=== PATIENT | male | born 1995 | race Caucasian/White ===

== ENCOUNTER 2022-03-02 11:47 | Day surgery (SDC) | payer OTHER, SELFPAY ==
[2022-03-02] VITALS (8 sets, daily range): BP systolic 112–138; BP diastolic 50–76; PULSE 66–84; RESP 12–20; TEMP 36.3–36.8; O2SAT 100
--- NOTE | ~2022-03-02 | XR_ITS ---
EXAMINATION: XR abdomen/kub 1V DATE: 03/02/2022 15:02 INDICATION: 3 mm distal left ureteral stone TECHNIQUE: A supine view of the abdomen on 2 radiographs was obtained. COMPARISON: CT dated 03/02/2022 FINDINGS: Excreted contrast from the earlier CT is seen within the bilateral renal collecting systems, ureters and bladder. There is mild left hydroureteronephrosis. There is extravasation of a small amount of co ntrast into the renal parenchyma surrounding one of the calyces at the lower pole with additional sma ll amount of extravasated perinephric contrast situated between the medial margin of the left kidney and medial margin of the left psoas muscle. There are a couple calcifications in the region of the le ft ureterovesicular junction, more likely representing the obstructing 3 mm stone in the second likel y representing one of several phleboliths in the pelvis. The additional stones in the left kidney are difficult to distinguish from the contrast within the calyces of the left kidney. Normal bowel gas p attern. IMPRESSION: 1. Mild left hydroureteronephrosis secondary to previous noted 3 mm stone at the left ureterovesicula r junction which appears to be visible at this location on the current study. 2. Small amount of left perinephric extravasated contrast consistent with urine leak secondary to for niceal rupture at a lower pole calyx. Reviewed, dictated and finalized at location B. IMPRESSION: 1. Mild left hydroureteronephrosis secondary to previous noted 3 mm stone at th e left ureterovesicular junction which appears to be visible at this location o n the current study. 2. Small amount of left perinephric extravasated contrast consistent with urine leak secondary to forniceal rupture at a lower pole calyx.
--- NOTE | ~2022-03-02 | XR_ITS ---
XR fluoroscopy no charge DATE: 03/02/2022 17:53 INDICATION: Left stone extraction TECHNIQUE: 2 spot C-arm images of the abdomen and pelvis 19 seconds fluoroscopy time [id number] [id number] COMPARISON: CT abdomen pelvis FINDINGS: There is columnar filling dilatation of the left ureter to the distal left ureteral area, w ith mild left hydronephrosis, blunting of the left renal calyces. There is faint contrast material within the right renal collecting systems. IMPRESSION: Distal left ureteral obstruction Reviewed, dictated and finalized at Location A. Reviewed, dictated and finalized at location A.
--- NOTE | ~2022-03-02 | CT_ITS ---
EXAMINATION: CT abdomen pelvis w con EXAM DATE: 03/02/2022 13:22 INDICATION: flank pain, Hx of stones . TECHNIQUE: Spiral CT of the abdomen and pelvis was performed following intravenous injection of 100 m L Omnipaque 350. Axial, coronal and sagittal images of the abdomen and pelvis were reviewed. The do se-length product (DLP) for this examination was 215.25 mGy-cm. The exposure was tailored according to patient size (auto mA exposure control), and iterative reconstruction (ASIR) was used as additiona l dose reduction technique. There is no prior study for comparison. FINDINGS: There is a left distal ureteral 3 mm stone, 1 cm from the ureterovesicular junction indicat ed on axial image 152. Mild left-sided obstructive nephropathy. There are multiple other left renal s tones up to about 6 mm in size. No right renal stones suspected. The liver, spleen, adrenal glands a nd pancreas are unremarkable. Gallbladder is unremarkable. No biliary obstruction. The prostate is unremarkable. The bladder is unremarkable. There is no retroperitoneal or pelvic lymphadenopathy. There are no findings to suggest appendicitis. The stomach and small bowel are unremarkable. There is mild colonic wall thickening at the hepatic flexure, 4 approximately 10 cm segment. Scattered colo adolfo diverticulitis including along the segment both without adjacent fat stranding. No pneumatosis or perforation. The heart is normal in size. There are no pericardial or pleural effusions. The lung bases are unremarkable. The bones are unremarkable. IMPRESSION: 1. Distal left ureteral 3 mm stone, mild obstructive nephropathy. Multiple left calyceal stones. 2. Colonic hepatic flexure mild wall thickening for about 10 cm segment with scattered diverticula. This is of uncertain clinical significance given that it may be asymptomatic, check for right upper q uadrant tenderness. Some scattered diverticula but no evidence of acute diverticulitis. Possibly wolff sient phasic, or colitis? Reviewed, dictated and finalized at location A. IMPRESSION: 1. Distal left ureteral 3 mm stone, mild obstructive nephropathy. Multiple le ft calyceal stones. 2. Colonic hepatic flexure mild wall thickening for about 10 cm segment with s cattered diverticula. This is of uncertain clinical significance given that it may be asymptomatic, check for right upper quadrant tenderness. Some scattered diverticula but no evidence of acute diverticulitis. Possibly transient phasic, or colitis?
--- NOTE | 2022-03-02 12:20 | ED.BACK ---
HPI - Back Pain/Injury General Chief Complaint: Back Pain/Injury <Victorina Castro PA-C - Last Filed: 03/02/22 17:58> Stated Complaint: lower back pain <JOSE Ramon Last Filed: 03/02/22 17:58> Source: patient <JOSE Ramon Last Filed: 03/02/22 17:58> Mode of arrival: EMS <JOSE Ramon Last Filed: 03/02/22 17:58> Limitations: no limitations <JOSE Ramon Last Filed: 03/02/22 17:58> History of Present Illness HPI Narrative: Patient is a 26 y/o male who presents to the ED via EMS with report of L flank pain. Patient reports he was sitting in recliner at home approximately 45 minutes ago when he suddenly developed severe pain in his left flank. He did not take anything for the pain at home. EMS was called. EMS gave patient IV Toradol in route which improved his pain slightly. He does report his pain is returning again. Patient has a history of kidney stone several years ago which he passed on his own. He does note he required inpatient admission at that time for pain control. He is unsure if his current pain feels similar or not. He denies any radiation of the pain. No alleviating factors. No abdominal pain. Denies any recent urinary symptoms, dysuria, hematuria, urinary frequency, nausea, vomiting, fever, chills. <Victorina Castro PA-C - Last Filed: 03/02/22 17:58> Related Data Allergies/Adverse Reactions: Allergies Allergy/AdvReac Type Severity Reaction Status Date / Time No Known Allergies Allergy Verified 03/02/22 14:31 <Victorina Castro PA-C - Last Filed: 03/02/22 17:58> Review of Systems Review of Systems: CONSTITUTIONAL: Denies fever, chills, or sweats. CARDIOVASCULAR: Denies chest pain. RESPIRATORY: Denies dyspnea. GASTROINTESTINAL: Denies abdominal pain, nausea, vomiting, or diarrhea. GENITOURINARY: Denies dysuria, urinary frequency, or hematuria. MUSCULOSKELETAL: Reports L flank pain. Denies joint pain, or myalgia. <Victorina Castro PA-C - Last Filed: 03/02/22 17:58> All systems reviewed & are unremarkable except as noted in HPI and below <Victorina Castro PA-C - Last Filed: 03/02/22 17:58> [facility] Past Medical History Medical History: Medical History Anxiety Nephrolithiasis <Victorina Castro PA-C - Last Filed: 03/02/22 17:58> Surgical History Surgical History: Surgical History No pertinent past surgical history <Victorina Castro PA-C - Last Filed: 03/02/22 17:58> Social History Social History: Social History Smoking status: Never smoker <Victorina Castro PA-C - Last Filed: 03/02/22 17:58> Exam Narrative: GENERAL: Well appearing, thin, non-toxic, in mild acute distress. HEAD: Normocephalic, atraumatic. NECK: Supple. No adenopathy, no masses. RESPIRATORY: Airway patent, respirations nonlabored. Clear to auscultation bilaterally, no rales, rhonchi, wheezing. CARDIOVASCULAR: Regular rate and rhythm without murmurs, rubs, or gallops. Peripheral pulses 2+ and equal bilaterally. ABDOMINAL: Soft, nontender, nondistended. Normoactive BS. L CVA tenderness to percussion. MUSCULOSKELETAL: Moves all extremities. Strength/ROM intact without gross deformities. Tenderness palpation of left mid to lower back. LLE tremulous. No edema. SKIN: Warm, dry, normal color. No rashes. NEURO: A&O X3. Speech clear. Cranial nerves II-XII grossly intact. Steady gait. No ataxic movements. PSYCHIATRIC: Anxious appearing. Appropriate affect. Normal interaction. <Victorina Castro PA-C - Last Filed: 03/02/22 17:58> Course EC TEACHER/PA Physician Supervision For this encounter, I have reviewed the PA documentation, treatment plan and medical decision making: And I have had [id number] time with the patient. Discussed with patient our discussion was with urology discussed need for OR to
[2022-03-02] MEDS: SODIUM CHLORIDE 0.9% IV 1,000 ML 999 ML IV CONT (12:44)
[2022-03-02 12:52] LABS: Basophils Absolute Auto 0.1 K/mm3 (0.0-0.1); Basophils Percent Auto 0.5 % (0.2-1.2); Eosinophils Percent Auto 0.2 % (0-4.4); Hematocrit 41.8 % (42.0-52.0); Immature Granulocyte Absolute 0.03 K/mm3 (0.00-0.031); Immature Granulocyte Percent A 0.2 % (0-0.5); Lymphocytes Absolute Auto 1.15 K/mm3 (0.9-3.2); Lymphocytes Percent Auto 8.3 % (18.3-44.2); Mean Corpuscular HGB Conc 33.5 g/dl (32-36); Mean Corpuscular Hemoglobin 28.5 pg (26-34); Mean Platelet Volume 10.3 fl (7.4-10.4); Monocytes Absolute Auto 0.6 K/mm3 (0.1-0.6); Monocytes Percent Auto 4.2 % (2.6-8.5); Neutrophils Percent Auto 86.6 % (45.5-73.1); Platelet Count Result 260 k/mm3 (150-375); Red Blood Count 4.92 M/mm3 (4.6-6.20); Red Cell Distribution Width 13.1 % (11.5-14.5); White Blood Count 13.8 K/mm3 (4.5-10.0)
[2022-03-02 13:01] LABS: Alanine Aminotransferase 15 U/L (4-50); Albumin Level 4.4 g/dL (3.5-5.1); Alkaline Phosphatase 54 U/L (38-126); Anion Gap 6 mmol/L (8-16); Aspartate Amino Transferase 27 U/L (17-59); Bilirubin,Total 1.1 mg/dL (0.2-1.3); Blood Urea Nitrogen 14 mg/dL (9-20); Calcium 8.8 mg/dL (8.4-10.2); Carbon Dioxide 26 mmol/L (22-30); Chloride 105 mmol/L (98-107); Estimated CRCL calculation 108 ml/min; Estimated Glomerular Filt Rate > 60; Glucose 115 mg/dL (65-110); Potassium 3.8 mmol/L (3.4-5.0); Sodium 137 mmol/L (137-145)
[2022-03-02] MEDS: MORPHINE SULFATE (*CRX) 4 MG/ML INJ 2 MG IV PUSH ×2 (14:32→16:15)
[2022-03-02] MEDS: ONDANSETRON INJ 4 MG/2 ML VIAL IV PUSH (14:32)
[2022-03-02 14:54] LABS: Add Urine Microscopic? YES; Appearance Urine Cloudy (Clear); Bilirubin Urine Negative (Negative); Blood Urine 1+ (Negative); Color Urine Yellow (Yellow); Glucose Urine UA Negative (Negative); Ketones Urine Negative (Negative); Leukocyte Esterase Ur Negative LEU/UL (Negative); Mucus Urine Rare /lpf; Nitrate Urine Negative (Negative); Protein Urine Negative (Negative); RBC Urine 21-50 /hpf (0-2); Squamous Epithelial Cell Urine Rare /hpf (Few); Urobilinogen Urine Negative mg/dL (<2.0); WBC Urine 0-3 /hpf
[2022-03-02 15:12] LABS: Specific Grav Ur 1.035 (1.001-1.035)
--- NOTE | 2022-03-02 16:04 | WPDURCON ---
Assessment and Plan Assessment and plan (1) Ureteral calculus, left: Code(s): N20.1 - Calculus of ureter Status: Acute Assessment and Plan: Obtain consent: Cystoscopy, left ureteroscopy with stone extraction, possible left stent placement, left retrograde pyelogram. Plan to go to the OR with Dr. Mejia. Obtain a urine culture. Urology Consult Note HPI Date Seen: 03/02/22 Primary Care Provider: PHYSICIAN NOT ON STAFF Consult Narrative Narrative: Abdulaziz Schulz is a 26 year old male who presents via EMS to the ER for acute onset of left flank pain, associated nausea and vomiting. He denies dysuria, hematuria, frequency, urgency or straining of urination. He has a WBC of 13,000, creatinine is stable. He is afebrile. CT scan shows a 3mm left UVJ stone which is also visible on KUB. He has a history of kidney stones when he was in 8th grade and was admitted for pain control overnight. He passed the stone spontaneously at that time. UA is not suggestive of a UTI, but a culture will need to be done. He has been given Tylenol, Torodol and Morphine but pain is not controlled. Review of Systems Cardiovascular: Cardiovascular: Denies chest pain Respiratory: Respiratory: Reports no additional respiratory complaints Gastrointestinal: Gastrointestinal: Reports abdominal pain, Reports nausea and Denies vomiting Genitourinary: Genitourinary: Denies hematuria, Denies dysuria, Reports flank pain, Denies urinary frequency, Denies urinary incontinence and Denies urinary urgency PMFSH Past Medical History Medical History Anxiety Surgical History Surgical History No pertinent past surgical history Social History Social History Smoking status: Never smoker Meds Home Medications and Allergies Home Medications Medication Instructions Recorded Confirmed Type hydrocodone-acetaminophen 1 tablet PO Q6H PRN #20 tablet 03/02/22 Rx sulfamethoxazole-trimethoprim 1 tablet PO Q12H #14 tablet 03/02/22 Rx [Bactrim DS] Allergies Allergy/AdvReac Type Severity Reaction Status Date / Time No Known Allergies Allergy Verified 03/02/22 14:31 Vital Signs Vital Signs - 24 hr 03/02/22 11:50 Temperature 98 F Pulse Rate 82 Respiratory Rate 18 Blood Pressure 138/76 Pulse Oximetry 100 Exam Resp: Effort & Inspection: normal respiratory effort Cardio: Rate: regular rate GI: GI Palp: Yes Soft to palpation and No Tenderness to palpation present (GI) : General: Yes CVA tenderness on the left Extrem: General: no edema Results Labs CBC & Chem 7: 03/02/22 12:44 03/02/22 12:44 Labs: Short CBC 03/02/22 Range/Units 12:44 WBC 13.8 H (4.5-10.0) K/mm3 Hgb 14.0 (14.0-18.0) g/dL Hct 41.8 L (42.0-52.0) % Plt Count 260 (150-375) k/mm3 BMP 03/02/22 12:44 Sodium 137 Potassium 3.8 Chloride 105 Carbon Dioxide 26 BUN 14 Creatinine 0.80 Glucose 115 H Calcium 8.8 Liver Function 03/02/22 Range/Units 12:44 Total Bilirubin 1.1 (0.2-1.3) mg/dL AST 27 (17-59) U/L ALT 15 (4-50) U/L Alkaline Phosphatase 54 (38-126) U/L Albumin 4.4 (3.5-5.1) g/dL Urine 03/02/22 Range/Units 14:38 Urine Color Yellow (Yellow) Urine Appearance Cloudy H (Clear) Urine pH 9.0 (5.0-9.0) Ur Specific [place] 1.035 (1.001-1.035) Urine Protein Negative (Negative) mg/dL Urine Glucose (UA) Negative (Negative) mg/dL
--- NOTE | 2022-03-02 16:19 | WPDANESEPP ---
Anes - Eval Pre Procedure Procedure: Operation Date: 03/02/22 16:30 Proposed Procedures p Cystoscopy,Left Ureteroscopy,Left Retrograde Pyelogram,Left Stone Extraction,Possible Holmium Laser,Possible Stent Placement - Manjit Mejia MD Date/Time: 03/02/22 16:19 Pre Op Diagnosis: lower back pain Patient Data Age: 26 Gender: M Height: 1.88 m Weight: 63 kg Last Vital Signs Temp 36.6 C 03/02/22 11:50 Pulse 82 03/02/22 11:50 Resp 18 03/02/22 11:50 BP 138/76 03/02/22 11:50 Pulse Ox 100 03/02/22 11:50 Allergies Allergy/AdvReac Type Severity Reaction Status Date / Time No Known Allergies Allergy Verified 03/02/22 14:31 Home Medications Medication Instructions Recorded Confirmed Type hydrocodone-acetaminophen 1 tablet PO Q6H PRN #20 tablet 03/02/22 Rx sulfamethoxazole-trimethoprim 1 tablet PO Q12H #14 tablet 03/02/22 Rx [Bactrim DS] Laboratory Tests 03/02/22 03/02/22 03/02/22 12:44 12:44 14:38 WBC 13.8 K/mm3 H K/mm3 (4.5-10.0) RBC 4.92 M/mm3 M/mm3 (4.6-6.20) Hgb 14.0 g/dL g/dL (14.0-18.0) Hct 41.8 % L % (42.0-52.0) MCV 85.0 fl fl (80-100) MCH 28.5 pg pg (26-34) MCHC 33.5 g/dl g/dl (32-36) RDW 13.1 % % (11.5-14.5) Plt Count 260 k/mm3 k/mm3 (150-375) MPV 10.3 fl fl (7.4-10.4) Immature Gran % (Auto) 0.2 % % (0-0.5) Neut % (Auto) 86.6 % H % (45.5-73.1) Lymph % (Auto) 8.3 % L % (18.3-44.2) [place] % (Auto) 4.2 % % (2.6-8.5) Eos % (Auto) 0.2 % % (0-4.4) Baso % (Auto) 0.5 % % (0.2-1.2) Lymph # (Auto) 1.15 K/mm3 K/mm3 (0.9-3.2) [place] # (Auto) 0.6 K/mm3 K/mm3 (0.1-0.6) Eos # (Auto) 0.0 K/mm3 K/mm3 (0-0.3) Baso # (Auto) 0.1 K/mm3 K/mm3 (0.0-0.1) Abs Immat Gran (auto) 0.03 K/mm3 K/mm3 (0.00-0.031) Absolute Neuts (auto) 12.0 K/mm3 H K/mm3 (1.3-6.7) Absolute Nucleated RBC 0.0 K/mm3 K/mm3 (0.0-0.012) Nucleated RBC % 0.0 % % (0.0-0.2) Sodium 137 mmol/L mmol/L (137-145) Potassium 3.8 mmol/L mmol/L (3.4-5.0) Chloride 105 mmol/L mmol/L (98-107) Carbon Dioxide 26 mmol/L mmol/L (22-30) Anion Gap 6 mmol/L L mmol/L (8-16) BUN 14 mg/dL mg/dL (9-20) Creatinine 0.80 mg/dL mg/dL (0.7-1.3) Estim Creat Clear Calc 108 ml/min ml/min Estimated GFR > 60 (59 - ) Glucose 115 mg/dL H mg/dL (65-110) Calcium 8.8 mg/dL mg/dL (8.4-10.2) Total Bilirubin 1.1 mg/dL mg/dL (0.2-1.3) AST 27 U/L U/L (17-59) ALT 15 U/L U/L (4-50) Alkaline Phosphatase 54 U/L U/L (38-126) Total Protein 7.0 g/dL g/dL (6.3-8.2) Albumin 4.4 g/dL g/dL (3.5-5.1) Urine Color Yellow (Yellow) Urine Appearance Cloudy H (Clear) Urine pH 9.0 (5.0-9.0) Ur Specific [place] 1.035 (1.001-1.035) Urine Protein Negative mg/dL mg/dL (Negative) Urine Glucose (UA) Negative mg/dL mg/dL (Negative) Urine Ketones Negative mg/dL mg/dL (Negative) Ur Blood (Man) 1+ H (Negative) Urine Nitrate Negative (Negative) Urine Bilirubin Negative (Negative) Urine Urobilinogen Negative mg/dL mg/dL (<2.0) Leukocyte Esterase Rfl Negative BRIT/UL BRIT/UL (Negative) Urine RBC 21-50 /hpf H /hpf (0-2) Urine WBC 0-3 /hpf /hpf Ur Squamous Epith Cells Rare /hpf /hpf (Few) Urine Mucus Rare /lpf /lpf Patient hx anesthesia problems: none Family hx anesthesia problems: none Results Review: All pre-operative results and documents have been reviewed as part of the pre-operative evaluation. PMFSH Past Medical History
--- NOTE | 2022-03-02 16:29 | WPDHPUPDATE1 ---
History and Physical Update Update Date/Time: 03/02/22 16:29 History and Physical has been reviewed, including an updated exam of the patient. There are NO changes in the patient's condition. Risks, benefits, and alternatives have been discussed and questions answered. Patient agrees to proceed with procedure. Proceed with cysto, left retrograde, left ureteroscopy,stone extraction possible laser and stent
--- NOTE | 2022-03-02 16:35 | PC.NURSE ---
called lab and talked to Ara at 1635 to add on a UC
--- NOTE | 2022-03-02 17:03 | WPDANESEFPP ---
Anes - Eval Final PreProcedure Day of Procedure 03/02/22 17:03 Patient weight: normal Heart: regular rate and rhythm Lungs: clear to auscultation and normal air movement Airway: Mallampati scale class II Neurological: alert and oriented Last oral intake: >/= 8 hours ASA classification: II Emergent: yes Anesthetic plan: proceed Anesthesia type and monitoring: general ETT Results Review: All pre-operative results and documents have been reviewed as part of the pre-operative evaluation. Informed Consent: The patient's anesthetic plan and its attendant risks and benefits were discussed with the patient/family/POA. Questions were solicited and answers provided to the satisfaction of the patient/family/POA.
[2022-03-02] MEDS: ceFAZolin SODIUM 1 GM VIAL 2 GM IV PUSH (17:32)
[2022-03-02] MEDS: LIDOCAINE HCL 2% GEL UROJET 10 ML PKG MUCOUS MEM (17:42)
--- NOTE | 2022-03-02 17:45 | P.OP_ITS ---
Procedure Note - Detailed Date of Procedure 03/02/22 Pre-op Diagnosis Obstructing left distal ureteral calculus with hydronephrosis and renal colic Post-op Diagnosis Same Procedure Performed Cystoscopy, left ureteroscopy with stone extraction Surgeon Manjit Mejia MD Anesthesia General Indications 26-year-old male with an obstructing with 3 mm left ureteral calculus with significant need for pain control. Patient taken to the operative suite for definitive treat Description of Procedure Patient is taken the operative suite correctly identified. Once anesthesia was obtained was placed in dorsal lithotomy position and prepped draped usual sterile fashion. Nineteen German scope was inserted in the bladder. There were no tumors noted. Left ureteral orifice was cannulated with a guidewire. We gently dilated using a 8/10 dilator. Rigid ureteral scope was then inserted. The left ureteral calculus was visualized. Using escape basket removed in its entirety. Giving the very lower minimal manipulation we decided to not place a stent. 2% viscous lidocaine was inserted into the urethra patient is taken recovery stable condition. A follow-up in 2-3 weeks time at which point will obtain a renal ultrasound and KUB as he has multiple stones in his left kidney. He will need a nephrology workup at some point time with for a metabolic workup Drains No Packing No Pathology Yes Complications No immediate complications Condition Stable Disposition PACU
[2022-03-02] MEDS: LACTATED RINGERS 1,000 ML 30 ML IV CONT (17:50)
== END 2022-03-02 19:09 | disposition home or self-care (01) ==
LOC: ANHED 16:37 → ANHSURGERY 17:02
PROVIDERS: Physician Assistant; Emergency Provider Emergency Medicine; Visit Provider Urology
PROC: (CPT 52352; principal; 2022-03-02 16:30)
DX: N13.2 Hydronephrosis with renal and ureteral calculous obstruction (principal)
CPT/HCPCS: 52352; 36415; 74018; 74177; 80053; 81001; 82365; 85025; 87086; 88300; 96361; 96365; 96375; 99285; A9270; C1769; J0131; J0330; J0690; J2250; J2270; J2405; J2704; J3010; J7030; J7120; Q9967

== ENCOUNTER 2022-03-03 20:53 | Emergency (ER) | payer OTHER, SELFPAY ==
--- NOTE | ~2022-03-03 | CT_ITS ---
EXAMINATION: CT abdomen pelvis wo con EXAM DATE: 03/03/2022 22:04 INDICATION: Left flank pain. TECHNIQUE: Spiral CT of the abdomen and pelvis was performed without contrast. Axial, coronal and sag ittal images were reviewed. The dose-length product (DLP) for this examination was 192.05 mGy-cm. T he exposure was tailored according to patient size (auto mA exposure control), and iterative reconstr uction (ASIR) was used as additional dose reduction technique. Comparison is made to prior examinatio n from 03/02/2022. FINDINGS: Previously seen distal left ureteral 3 mm stone is no longer identified, has likely passed. There is persistent mild left hydroureteronephrosis. Multiple volar left calyceal stones up to about 7 mm in size. The prostate is unremarkable. The bladder is unremarkable. The liver, spleen, adren al glands and pancreas are unremarkable. Gallbladder is unremarkable. No biliary obstruction. Ther e is no retroperitoneal or pelvic lymphadenopathy. Previously seen prominent colonic wall at the hepatic flexure has more normal appearance on this exam ination. There are no findings to suggest appendicitis. The stomach and small bowel are unremarkable . There is moderate amount of colonic stool. No free intraperitoneal gas. The heart is normal in size. There are no pericardial or pleural effusions. The lung bases are unremarkable. There are n o osteoblastic or osteolytic lesions identified. IMPRESSION: 1. Previously seen distal left ureteral 3 mm stone no longer identified, has likely passed. Persiste nt mild left hydroureteronephrosis. 2. Multiple left calyceal stones. 3. Moderate colonic stool. Reviewed, dictated and finalized at location A. IMPRESSION: 1. Previously seen distal left ureteral 3 mm stone no longer identified, has l ikely passed. Persistent mild left hydroureteronephrosis. 2. Multiple left calyceal stones. 3. Moderate colonic stool.
[2022-03-03 20:55] VITALS: BP 140/73; PULSE 67; RESP 16; TEMP 36.8; O2SAT 100
--- NOTE | 2022-03-03 21:32 | ED.BACK ---
HPI - Back Pain/Injury General Chief Complaint: Back Pain/Injury Stated Complaint: Left flank pain Time Seen by Provider: 03/03/22 21:02 Source: patient History of Present Illness HPI Narrative: 26-year-old male returns emerge department for evaluation of return of his left flank pain. Patient was diagnosed with a kidney stone yesterday and did have basket retrieval of the stone. Patient was discharged home with hydrocodone. Patient states over the course of last night has pain was minimal but 1 hour prior to arrival he had acute worsening of his left flank pain. Patient states he is making urine and does report some hematuria. Patient did not take any medication for pain control prior to arrival. Related Data Allergies Allergy/AdvReac Type Severity Reaction Status Date / Time No Known Allergies Allergy Verified 03/03/22 20:55 Review of Systems Review of Systems: CONSTITUTIONAL: Denies fever, chills, or sweats. EYES: Denies visual changes, redness, or discharge. ENT: Denies rhinorrhea, congestion, sore throat, or otalgia. CARDIOVASCULAR: Denies chest pain, palpitations, or edema. RESPIRATORY: Denies cough or dyspnea. GASTROINTESTINAL: Left flank pain GENITOURINARY: Hematuria SKIN: Denies rash or itching. MUSCULOSKELETAL: Denies back pain, joint pain, or myalgia. NEUROLOGIC: Denies headache, numbness, or weakness. [facility] Past Medical History Medical History Anxiety Nephrolithiasis Surgical History Surgical History No pertinent past surgical history Social History Social History Smoking status: Never smoker Exam Narrative: APPEARANCE: Well appearing, no pain, no distress, well-nourished. HEAD: normocephalic, atraumatic. RESPIRATORY: Airway patent, respirations nonlabored. Clear to auscultation bilaterally, no rales, rhonchi, wheezing. CARDIOVASCULAR: Regular rate and rhythm without murmurs rubs or gallops. ABDOMINAL: Soft, nontender, nondistended, normal bowel sounds. Some left CVA tenderness to palpation MUSCULOSKELETAL: Moves all extremities. Strength/ROM intact, No edema, No calf tenderness. NEURO: Alert. Cranial nerves II through XII intact. Grossly intact SKIN: Warm, dry. Normal Color Course Course Emergency Course: CT scan showed no acute abnormality. Patient's pain was improved with treatment. Vital Signs Vital signs: Vital Signs Temperature 98.2 F 03/03/22 20:55 Pulse Rate 67 03/03/22 20:55 Respiratory Rate 16 03/03/22 20:55 Blood Pressure 140/73 03/03/22 20:55 Pulse Oximetry 100 03/03/22 20:55 Temperature 98.2 F 03/03/22 20:55 Pulse Rate 57 L 03/04/22 01:26 Respiratory Rate 16 03/04/22 01:26 Blood Pressure 123/73 03/04/22 01:26 Pulse Oximetry 98 03/04/22 01:26 MDM - Back Pain/Injury Lab Data Attestation: I reviewed the patient's lab results. Labs: Lab Results 03/03/22 Range/Units 23:32 Urine Color Yellow (Yellow) Urine Appearance Cloudy H (Clear) Urine pH 5.0 (5.0-9.0) Ur Specific [place] 1.017 (1.001-1.035) Urine Protein 1+ H (Negative) mg/dL Urine Glucose (UA) Negative (Negative) mg/dL Urine Ketones Negative (Negative) mg/dL Ur Blood (Man) 3+ H (Negative) Urine Nitrate Negative (Negative) Urine Bilirubin Negative (Negative) Urine Urobilinogen Negative (<2.0) mg/dL Leukocyte Esterase Rfl Negative (Negative) BRIT/UL Urine RBC >75 H (0-2) /hpf Urine WBC 10-15 H /hpf Calcium Oxalate Crystal Present (None) /hpf Urine Mucus Few H /lpf Imaging Data Radiologist's impression: stat rad CT abdomen pelvis without contrast impression: Stable mild prominent extrarenal pelvis left kidney. No miguel hydronephrosis, hydroureter or interval change. No bladder stone. Incidental findings: Compared with CT abdomen pelvis and KUB on 03/02/2022.
[2022-03-03] MEDS: HYDROmorphone HCL INJ (*CRX) 1 MG/ML SYR IV PUSH (21:51)
[2022-03-03] MEDS: SODIUM CHLORIDE 0.9% IV 1,000 ML 999 ML IV CONT (22:45)
--- NOTE | 2022-03-03 22:51 | PC.NURSE ---
Patient unable to provide urine sample at this time. IV fluids initiated per physician's ordered. Patient care report given to MARTÍN Suarez. All questions answered at this time and care turned over to MARTÍN Suarez at this time.
--- NOTE | 2022-03-03 23:00 | PC.NURSE ---
Report from Leanna RESENDIZ
[2022-03-03 23:45] LABS: Add Urine Microscopic? YES; Appearance Urine Cloudy (Clear); Bilirubin Urine Negative (Negative); Blood Urine 3+ (Negative); Calcium Oxalate Crystals Urine Present /hpf; Color Urine Yellow (Yellow); Glucose Urine UA Negative (Negative); Ketones Urine Negative (Negative); Leukocyte Esterase Ur Negative LEU/UL (Negative); Mucus Urine Few /lpf; Nitrate Urine Negative (Negative); Protein Urine 1+ mg/dL (Negative); RBC Urine >75 /hpf (0-2); Specific Grav Ur 1.017 (1.001-1.035); Urobilinogen Urine Negative mg/dL (<2.0)
--- NOTE | 2022-03-04 00:52 | PC.NURSE ---
Pt asking about CT results. RN called Victorina from CT who states We are still working on it. PT updated.
[2022-03-04 01:18] VITALS: BP 123/73; PULSE 57; RESP 20; O2SAT 98
[2022-03-04 01:26] VITALS: BP 123/73; PULSE 57; RESP 16; O2SAT 98
[2022-03-04] MEDS: HYDROcodone/acetaminophen (*CRX) 5-325 MG TABLET 1 TAB PO (01:33)
== END 2022-03-04 01:37 | disposition home or self-care (01) ==
PROVIDERS: Emergency Provider Emergency Medicine; PCP Family Medicine
DX: R10.9 Unspecified abdominal pain (principal); Z87.442 Personal history of urinary calculi; N13.30 Unspecified hydronephrosis
CPT/HCPCS: 74176; 81001; 87086; 96361; 96374; 99284; A9270; J1170; J7030

== ENCOUNTER 2022-03-05 09:59 | Emergency (ER) | payer OTHER, SELFPAY ==
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
--- NOTE | 2022-03-05 10:45 | PC.NURSE ---
pt seen walking out of dept with his .
== END 2022-03-05 10:45 | disposition left against medical advice (07) ==
LOC: ANHED 10:55
DX: Z53.21 Procedure and treatment not carried out due to patient leaving prior to being seen by health care provider (principal)
CPT/HCPCS: 99199

== ENCOUNTER 2022-07-17 14:56 | Emergency (ER) | payer OTHER, SELFPAY ==
[2022-07-17] VITALS (30 sets, daily range): BP systolic 128–141; BP diastolic 69–98; PULSE 63–83; RESP 12–19; TEMP 36.5; O2SAT 100
--- NOTE | ~2022-07-17 | XR_ITS ---
EXAMINATION: XR chest 2V DATE: 07/17/2022 15:43 INDICATION: Chest pain TECHNIQUE: PA and lateral views of the chest are obtained. COMPARISON: 01/29/2008 FINDINGS: The lungs are free of acute opacities. No pleural effusion or pneumothorax. The cardiomedia stinal silhouette is normal. The visualized bones and soft tissues are unremarkable. IMPRESSION: 1. No acute cardiopulmonary abnormality. Reviewed, dictated and finalized at location B.
--- NOTE | 2022-07-17 15:12 | ECG_ITS ---
Measurements Intervals [place] Rate: 76 P: 60 CO: 131 QRS: 76 QRSD: 105 T: 47 QT: 388 QTc: 437 Interpretive Statements SINUS RHYTHM WITH SINUS ARRHYTHMIA NORMAL ECG NO PREVIOUS ECG AVAILABLE FOR COMPARISON Electronically Signed On 07-17-2022 18:29:14 CDT by Jeffery Flood M.D.
[2022-07-17 15:27] LABS: Basophils Absolute Auto 0.1 K/mm3 (0.0-0.1); Basophils Percent Auto 0.8 % (0.2-1.2); Eosinophils Absolute Auto 0.1 K/mm3 (0-0.3); Eosinophils Percent Auto 1.1 % (0-4.4); Hematocrit 42.5 % (42.0-52.0); Immature Granulocyte Absolute 0.03 K/mm3 (0.00-0.031); Immature Granulocyte Percent A 0.4 % (0-0.5); Lymphocytes Absolute Auto 1.86 K/mm3 (0.9-3.2); Lymphocytes Percent Auto 25.5 % (18.3-44.2); Mean Corpuscular HGB Conc 32.9 g/dl (32-36); Mean Corpuscular Hemoglobin 28.1 pg (26-34); Mean Corpuscular Volume 85.2 fl (80-100); Mean Platelet Volume 10.2 fl (7.4-10.4); Monocytes Absolute Auto 0.5 K/mm3 (0.1-0.6); Monocytes Percent Auto 6.3 % (2.6-8.5); Neutrophils Absolute Auto 4.8 K/mm3 (1.3-6.7); Neutrophils Percent Auto 65.9 % (45.5-73.1); Platelet Count Result 268 k/mm3 (150-375); Red Blood Count 4.99 M/mm3 (4.6-6.20); Red Cell Distribution Width 13.1 % (11.5-14.5); White Blood Count 7.3 K/mm3 (4.5-10.0)
[2022-07-17 15:41] LABS: Alanine Aminotransferase 14 U/L (6-50); Albumin Level 4.6 g/dL (3.5-5.1); Alkaline Phosphatase 45 U/L (38-126); Anion Gap 9 mmol/L (8-16); Aspartate Amino Transferase 22 U/L (17-59); Blood Urea Nitrogen 19 mg/dL (9-20); Calcium 9.3 mg/dL (8.4-10.2); Carbon Dioxide 30 mmol/L (22-30); Chloride 100 mmol/L (98-107); Estimated CRCL calculation 108 ml/min; Estimated Glomerular Filt Rate > 60; Glucose 83 mg/dL (65-110); Lipase 115 U/L (23-300); Potassium 3.6 mmol/L (3.4-5.0); Sodium 139 mmol/L (137-145)
[2022-07-17 15:47] LABS: INR 1.2; Prothrombin Time 14.8 Seconds (11.1-14.7)
[2022-07-17 15:53] LABS: Troponin I < 0.012 ng/mL (0.000-0.034)
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
[2022-07-17] MEDS: KETOROLAC 30 MG/ML VIAL (*BKC) IM (16:56)
[2022-07-17 17:06] LABS: D Dimer < 0.27 ug/mL (<0.48)
[2022-07-17 19:36] LABS: Troponin I < 0.012 ng/mL (0.000-0.034)
== END 2022-07-17 21:30 | disposition home or self-care (01) ==
PROVIDERS: Emergency Provider Emergency Medicine; PCP Family Medicine
DX: R07.9 Chest pain, unspecified (principal); Z87.442 Personal history of urinary calculi
CPT/HCPCS: 36415; 71046; 80053; 83690; 84484; 85025; 85380; 85610; 85730; 93005; 96372; 99284; J1885

== ENCOUNTER 2023-01-02 12:33 | Emergency (ER) | payer BC, SELFPAY ==
--- NOTE | ~2023-01-02 | XR_ITS ---
Left Knee Technique: AP, lateral, and sunrise views were obtained. Clinical History: Pain Findings: No fracture or dislocation is seen. Osseous alignment is anatomic. Joint spaces are preserv ed without degenerative or erosive change. Soft tissues are unremarkable. No joint effusion is seen. Impression: Unremarkable left knee radiographs. Reviewed, dictated and finalized at location . [facility] [employer] Impression: Unremarkable left knee radiographs.
--- NOTE | 2023-01-02 12:47 | ED.LOWEXIN ---
HPI - Extremity Injury (Lower) General Chief Complaint: Extremity Injury, Lower Stated Complaint: L KNEE INJURY Time Seen by Provider: 01/02/23 12:40 Source: patient and RN notes reviewed History of Present Illness HPI Narrative: Patient is a 27-year-old male who presents to urgent care with complaints of left knee pain. Patient states he was using a concrete [employer] and the recalls from the machinery hit his knee cap. Patient is not done anything for pain since the incident at 10:00 a.m. this morning. States that it hurts worse with squatting or ambulating. No other acute complaints. No acute distress noted. Patient aware of the plan of care. Some parts of this dictation were generated by voice recognition software and may contain typographical and/or grammatical inaccuracies. Related Data Home Medications Medication Instructions Recorded Confirmed diazepam 5 mg tablet 5 mg PO DAILY 01/02/23 01/02/23 Allergies Allergy/AdvReac Type Severity Reaction Status Date / Time No Known Allergies Allergy Verified 01/02/23 13:09 Review of Systems Review of Systems: CONSTITUTIONAL: Denies fever, chills, or sweats. EYES: Denies visual changes, redness, or discharge. ENT: Denies rhinorrhea, congestion, sore throat, or otalgia. CARDIOVASCULAR: Denies chest pain, palpitations, or edema. RESPIRATORY: Denies cough or dyspnea. GASTROINTESTINAL: Denies abdominal pain, nausea, vomiting, or diarrhea. GENITOURINARY: Denies dysuria or hematuria. SKIN: Denies rash or itching. MUSCULOSKELETAL: Reports of left knee pain NEUROLOGIC: Denies headache, numbness, or weakness. All other systems reviewed are negative, except as documented in HPI. [facility] Past Medical History Medical History (Updated 01/02/23 @ 13:14 by LARRY Holland) Kidney stones Surgical History Surgical History (Updated 07/17/22 @ 17:15 by Theodore Dockery MD) History of appendectomy Family History Family History (Updated 07/28/14 @ 15:33 by DOCTOR UNKNOWN) Other Diabetes mellitus Family history of cardiovascular disease Family history of elevated blood lipids Social History Social History Alcohol intake: current Comments At the time of my signature, I reviewed and agree with the nursing past medical, surgical, social, and family history. There is no relevant family history pertinent to the patient complaint. Exam Narrative: GENERAL: This is a well-nourished, well-developed patient, in no apparent distress. HEAD: normocephalic, atraumatic. EYES: PERRL. Sclera clear/white. Vision is grossly intact. EARS: External ears normal NOSE: External nose normal with no obvious nasal discharge, nares without redness, no rhinorrhea. THROAT: Mucous membranes moist NECK: Neck supple SKIN: warm, intact with no suspicious lesions or rash, good texture and turgor. NEURO: awake, alert, and oriented to person, place and time. There were no obvious focal neurologic abnormalities. EXTREMITIES: No obvious effusion, erythema, ecchymosis or edema noted to the left knee/lower extremity. No pinpoint tenderness over the left patellar region. Range of motion left lower extremity within normal limits. Course Course Level of Care: Express Care Visit Vital Signs Vital signs: Vital Signs Temperature 98.4 F 01/02/23 12:49 Pulse Rate 95 01/02/23 12:49 Respiratory Rate 16 01/02/23 12:49 Blood Pressure 143/74 H 01/02/23 12:49 Pulse Oximetry 100 01/02/23 12:49 Temperature 98.4 F 01/02/23 12:49 Pulse Rate 95 01/02/23 12:49 Respiratory Rate 16 01/02/23 12:49 Blood Pressure 143/74 H 01/02/23 12:49 Pulse Oximetry 100 01/02/23 12:49 Reviewed- Patient is informed that they may have pre-hypertension or hypertension based on a blood pressure reading in the department. I recommend the patient call the primary care provider listed on their discharge instructions or a physician of their choice this week to arrange follow-up for f
[2023-01-02 12:49] VITALS: BP 143/74; PULSE 95; RESP 16; TEMP 36.9; O2SAT 100
== END 2023-01-02 13:20 | disposition home or self-care (01) ==
PROVIDERS: Emergency Provider Nurse Practitioner Family; PCP Family Medicine
DX: S80.02XA Contusion of left knee, initial encounter (principal); W31.89XA Contact with other specified machinery, initial encounter
CPT/HCPCS: 73562; 99213; G0463

== ENCOUNTER 2023-03-11 17:18 | Emergency (ER) | payer BC, SELFPAY ==
--- NOTE | ~2023-03-11 | CT_ITS ---
EXAMINATION: CT abdomen pelvis wo con DATE: 03/11/2023 17:49 INDICATION: Ureteral lithiasis TECHNIQUE: Computed tomography (CT) of the abdomen and pelvis was performed without intravenous contr ast. The dose-length product was 218.90 mGy-cm. Automated exposure control and iterative reconstructi on technique were employed. COMPARISON: CT dated 03/03/2022. FINDINGS: Lung bases unremarkable. Heart size normal. No significant pleural or pericardial effusion. No right renal or ureteral stones. No hydronephrosis. There are multiple nonobstructing left renal s tones. There are multiple pelvic phleboliths. No definite ureteral stones. Nonobstructive bowel gas p attern. The liver, spleen, pancreas, adrenal glands are unremarkable. Gallbladder is present. No free air or free fluid. No acute osseous abnormality. IMPRESSION: 1. Nonobstructing left nephrolithiasis. Reviewed, dictated and finalized at location A.
[2023-03-11 17:28] VITALS: BP 133/71; PULSE 73; RESP 16; TEMP 36.8; O2SAT 100
--- NOTE | 2023-03-11 17:37 | ED.GENADULT ---
HPI - General Adult General Chief complaint: Urogenital-Male <Jewels Powell PA-C - Last Filed: 03/11/23 21:40> Stated complaint: kidney stone <JOSE Abreu Last Filed: 03/11/23 21:40> Time Seen by Provider: 03/11/23 17:27 <Jewels Powell PA-C - Last Filed: 03/11/23 21:40> History of Present Illness HPI narrative: 27-year-old male with a history of kidney stones reports for evaluation of left flank pain that radiates to his abdomen since this morning. Patient reports passing 4 kidney stones in March 2022 and states this pain feels the same. Reports the pain is colicky and dull in nature. Denies chest pain, shortness of breath, abdominal pain, testicular pain, urinary frequency or urgency, dysuria or hematuria, fever, body aches, chills. Patient reports he went to bed last night feeling normal and woke up with the pain this morning. Denies trauma or injury. <JOSE Abreu Last Filed: 03/11/23 21:40> Related Data Home medications: Home Medications Medication Instructions Recorded Confirmed diazepam 5 mg tablet 5 mg PO DAILY 01/02/23 01/02/23 <JOSE Abreu Last Filed: 03/11/23 21:40> Allergies/adverse reactions: Allergies Allergy/AdvReac Type Severity Reaction Status Date / Time No Known Allergies Allergy Verified 01/02/23 13:09 <JOSE Abreu Last Filed: 03/11/23 21:40> Review of Systems Review of Systems: CONSTITUTIONAL: Denies fever, chills EYES: Denies visual changes, redness, or discharge. ENT: Denies rhinorrhea, congestion, sore throat, or otalgia. CARDIOVASCULAR: Denies chest pain, palpitations, or edema. RESPIRATORY: Denies cough or dyspnea. GASTROINTESTINAL: See HPI GENITOURINARY: Denies dysuria or hematuria. SKIN: Denies rash or itching. MUSCULOSKELETAL: See HPI NEUROLOGIC: Denies headache, numbness, dizziness, or weakness. PSYCHIATRIC: Denies anxiety or depression. <JOSE Abreu Last Filed: 03/11/23 21:40> PMFSH Past Medical History Medical History: Medical History Kidney stones <Jewels Powell PA-C - Last Filed: 03/11/23 21:40> Surgical History Surgical History: Surgical History History of appendectomy <Jewels Powell PA-C - Last Filed: 03/11/23 21:40> Family History Family History: Family History Other Diabetes mellitus Family history of cardiovascular disease Family history of elevated blood lipids <Jewels Powell PA-C - Last Filed: 03/11/23 21:40> Social History Social History: Social History Alcohol intake: current <Jewels Powell PA-C - Last Filed: 03/11/23 21:40> Exam Narrative: GENERAL: Well-appearing, well-nourished, and in no acute distress. Patient resting comfortably in exam bed. He is pleasant and conversational. HEAD: Normocephalic, atraumatic. EYES: PERRLA and EOMI. ENT: Nares clear, no rhinorrhea or epistaxis. Mucous membranes moist. Oropharynx without tonsillar hypertrophy exudate or other lesions. NECK: Supple. No adenopathy or masses. CHEST: Clear to auscultation. No respiratory distress. No wheezes rales or rhonchi HEART: Regular rate and rhythm. No murmur heard. Normal peripheral pulses. ABDOMEN: Soft, nontender, nondistended, normal active bowel sounds. Left CVA tenderness. No right-sided CVA tenderness. No overlying skin changes to abdomen or back. Full ROM of back. EXTREMITIES: Normal range of motion. No edema. SKIN: Warm, dry, no rash. NEURO: No focal deficits. Alert and oriented x3. Strength 5 out of 5 in bilateral upper and lower extremities. Sensation intact throughout. Ambulating w/o difficulty. PSYCH: Normal mood and affect. <Jewels Powell PA-C - Last Filed: 03/11/
[2023-03-11] MEDS: SODIUM CHLORIDE 0.9% IV 1,000 ML 999 ML IV CONT (18:02)
[2023-03-11] MEDS: ONDANSETRON INJ 4 MG/2 ML VIAL IV PUSH (18:04)
[2023-03-11 18:06] LABS: Basophils Absolute Auto 0.1 K/mm3 (0.0-0.1); Basophils Percent Auto 0.6 % (0.2-1.2); Eosinophils Absolute Auto 0.2 K/mm3 (0-0.3); Eosinophils Percent Auto 2.2 % (0-4.4); Hematocrit 43.6 % (42.0-52.0); Hemoglobin 14.6 g/dL (14.0-18.0); Immature Granulocyte Absolute 0.02 K/mm3 (0.00-0.031); Immature Granulocyte Percent A 0.2 % (0-0.5); Lymphocytes Absolute Auto 2.03 K/mm3 (0.9-3.2); Mean Corpuscular HGB Conc 33.5 g/dl (32-36); Mean Corpuscular Hemoglobin 28.5 pg (26-34); Mean Platelet Volume 10.2 fl (7.4-10.4); Monocytes Absolute Auto 0.5 K/mm3 (0.1-0.6); Neutrophils Absolute Auto 5.4 K/mm3 (1.3-6.7); Platelet Count Result 313 k/mm3 (150-375); Red Blood Count 5.13 M/mm3 (4.6-6.20); Red Cell Distribution Width 12.9 % (11.5-14.5); White Blood Count 8.1 K/mm3 (4.5-10.0)
[2023-03-11 18:11] LABS: Alanine Aminotransferase 18 U/L (6-50); Albumin Level 4.7 g/dL (3.5-5.1); Alkaline Phosphatase 58 U/L (38-126); Anion Gap 10 mmol/L (8-16); Aspartate Amino Transferase 23 U/L (17-59); Bilirubin,Total 0.7 mg/dL (0.2-1.3); Blood Urea Nitrogen 15 mg/dL (9-20); Calcium 8.9 mg/dL (8.4-10.2); Carbon Dioxide 29 mmol/L (22-30); Chloride 101 mmol/L (98-107); Estimated CRCL calculation 124 ml/min; Estimated Glomerular Filt Rate > 60; Glucose 109 mg/dL (65-110); Potassium 3.5 mmol/L (3.4-5.0); Sodium 140 mmol/L (137-145)
--- NOTE | 2023-03-11 18:17 | PC.NURSE ---
Patient declined Morphine at this time stating his pain is a dull ache and only a 3/10 which is tolerable for him.
[2023-03-11 18:24] LABS: Lipase 131 U/L (23-300)
[2023-03-11] MEDS: KETOROLAC 15 MG/ML VIAL (*BKC) IV PUSH ×2 (19:20→21:26)
[2023-03-11 21:06] LABS: Bacteria Urine None Seen /hpf; Non Pathogenic Casts 0-2; RBC Urine 0-2 /hpf (0-2); Squamous Epithelial Cell Urine None seen /hpf (Few); WBC Urine 0-5 /hpf
[2023-03-11 21:12] LABS: Appearance Urine Clear (Clear); Bilirubin Urine Negative (Negative); Blood Urine Negative (Negative); Color Urine Yellow (Yellow); Glucose Urine UA Negative (Negative); Ketones Urine Negative (Negative); Leukocyte Esterase Ur Negative LEU/UL (Negative); Nitrate Urine Negative (Negative); Protein Urine Negative (Negative); Urobilinogen Urine 0.2 mg/dL (<2.0)
[2023-03-11 21:13] LABS: Add Urine Microscopic? YES
[2023-03-11] MEDS: ACETAMINOPHEN 500 MG TABLET 1000 MG PO (21:25)
== END 2023-03-11 21:48 | disposition home or self-care (01) ==
PROVIDERS: Emergency Provider Physician Assistant; PCP Family Medicine
DX: N20.0 Calculus of kidney (principal); M54.9 Dorsalgia, unspecified; Z87.442 Personal history of urinary calculi
CPT/HCPCS: 36415; 74176; 80053; 81001; 83690; 85025; 96361; 96374; 96375; 99284; A9270; J1885; J2270; J2405; J7030

== ENCOUNTER 2023-06-21 19:33 | Emergency (ER) | payer BC, SELFPAY ==
[2023-06-21 19:39] VITALS: BP 130/85; PULSE 81; RESP 16; TEMP 36.2; O2SAT 100
--- NOTE | 2023-06-21 19:50 | ED.SKABFB ---
HPI - Skin/Abscess/Foreign Bdy General Chief complaint: Skin/Abscess/Foreign Body Stated complaint: SPOT ON FORHEAD Time Seen by Provider: 06/21/23 19:45 Source: patient, RN notes reviewed and old records reviewed Mode of arrival: ambulatory Limitations: no limitations History of Present Illness HPI narrative: 28 year old male who reports that he has had what he though was a pimple on the left side of his forehead for the past 2 days which is bigger today and is tender and is getting redder. Patient does admit that he has been picking on sore, has been applying alcohol to site with some inner scabbing noted. no drainage noted. patient denies any fevers chills or sweats, denies any ill contacts or any other symptoms. MD complaint: other (lesion) Onset (ago): day(s) (2) Location: face (left forehead) Severity: mild Severity scale (1-10): 1 Quality: aching Treatments prior to arrival: other (alcohol) Related Data Home Medications Medication Instructions Recorded Confirmed diazepam 5 mg tablet 5 mg PO DAILY 01/02/23 01/02/23 Allergies Allergy/AdvReac Type Severity Reaction Status Date / Time No Known Allergies Allergy Verified 01/02/23 13:09 Review of Systems Review of Systems: CONSTITUTIONAL: Denies fever, chills, or sweats. CARDIOVASCULAR: Denies chest pain, palpitations, or edema. RESPIRATORY: Denies cough or dyspnea. SKIN: Reports lesion to left side of forehead which has increased in size and is concerned due to tenderness of area, MUSCULOSKELETAL: Denies joint pain or myalgia. NEUROLOGIC: Denies headache, numbness, or weakness. All systems reviewed & are unremarkable except as noted in HPI and below PMFSH Past Medical History Medical History Kidney stones Surgical History Surgical History History of appendectomy Family History Family History Other Diabetes mellitus Family history of cardiovascular disease Family history of elevated blood lipids Social History Social History Alcohol intake: current Comments At time of signature, agree with nursing past medical, surgical, social and family history. There is no relevant family history pertinent to the presenting complaint Exam Narrative: GENERAL: Well-appearing, well-nourished, and in no acute distress. HEAD: Normocephalic, atraumatic. EYES: PERRLA, conjunctivae clear, and EOMI. ENT: Mucous membranes moist. Oropharynx without edema, erythema or lesions. NECK: Supple. No lymphadenopathy CHEST: Clear to auscultation. No respiratory distress. HEART: Regular rate and rhythm. SKIN: Warm, dry.? Red raised lesion to left forehead with no drainage noted. some swelling of skin around lesion with no fluctuance, scabbed center. NEURO:? Alert and oriented x3. PSYCH: Normal mood and affect Course Course Emergency Course: Patient is aware of diagnosis, understands and agrees to treatment plan.? Anticipatory guidance given.? Patient agrees to follow-up as directed and is aware of reasons to seek care at the emergency department. Portions of this record may have been created with voice recognition software Level of Care: Express Care Visit Vital Signs Vital signs: Vital Signs Temperature 36.2 C L 06/21/23 19:39 Pulse Rate 81 06/21/23 19:39 Respiratory Rate 16 06/21/23 19:39 Blood Pressure 130/85 06/21/23 19:39 Pulse Oximetry 100 06/21/23 19:39 Oxygen Delivery Room Air 06/21/23 19:39 Temperature 36.2 C L 06/21/23 19:39 Pulse Rate 81 06/21/23 19:39 Respiratory Rate 16 06/21/23 19:39 Blood Pressure 130/85 06/21/23 19:39 Pulse Oximetry 100 06/21/23 19:39 Oxygen Delivery Room Air 06/21/23 19:39 Reviewed MDM - Skin/Abscess/Foreign Bdy MDM Narrative Medical
== END 2023-06-21 19:59 | disposition home or self-care (01) ==
PROVIDERS: Emergency Provider Registered Nurse; PCP Family Medicine
DX: L98.9 Disorder of the skin and subcutaneous tissue, unspecified (principal)
CPT/HCPCS: 99213; G0463

== ENCOUNTER 2023-09-13 19:42 | Emergency (ER) | payer BC, SELFPAY ==
--- NOTE | 2023-09-13 19:49 | ED.URI ---
HPI - URI/Sore Throat General Chief Complaint: Upper Respiratory Infection Stated Complaint: Cold symptoms Source: patient Mode of arrival: ambulatory Limitations: no limitations History of Present Illness HPI Narrative: 28-year-old male presented for complaint of cough and chest congestion with mild sore throat. Onset 4 days. Cough is nonproductive, states it makes his chest feel heavy. patient was seen by PCP 2 days after onset, tested negative for covid and flu. Now he is not getting better. Not taking anything for symptoms. Denies sick contacts. denies shortness of breath, wheezing nausea vomiting fevers or chills. Related Data Home Medications Medication Instructions Recorded Confirmed diazepam 5 mg tablet 5 mg PO DAILY 01/02/23 09/13/23 Allergies Allergy/AdvReac Type Severity Reaction Status Date / Time No Known Allergies Allergy Verified 01/02/23 13:09 Review of Systems Review of Systems: CONSTITUTIONAL: Denies body aches, fever, chills, or sweats. EYES: Denies visual changes, redness, or discharge. ENT: Reports sore throat denies rhinorrhea, congestion, or otalgia. CARDIOVASCULAR: Denies chest pain, palpitations, or edema. RESPIRATORY: Reports cough, denies sob, wheezing. GASTROINTESTINAL: Denies abdominal pain, nausea, vomiting, or diarrhea. GENITOURINARY: Denies dysuria or hematuria. SKIN: Denies rash, itching, or wounds. MUSCULOSKELETAL: Denies back pain, joint pain, or myalgia. NEUROLOGIC: Denies headache, numbness, tingling, or weakness. All systems reviewed & are unremarkable except as noted in HPI and below PMFSH Past Medical History Medical History Kidney stones Surgical History Surgical History History of appendectomy Family History Family History Other Diabetes mellitus Family history of cardiovascular disease Family history of elevated blood lipids Social History Social History (Updated 09/13/23 @ 20:01 by Junie Olson APRN) Smokeless tobacco user: chewing tobacco Alcohol intake: current Comments At time of signature, I have reviewed and agree with nursing past medical, surgical, social and family history unless otherwise noted. Please see nursing chart for further information. There is no relevant family history pertinent to the presenting complaint Exam Narrative: GENERAL: Well-appearing, in no acute distress. EYES: EOMI. No redness or drainage. Conjunctivae normal. ENT: Mucous membranes pink and moist. No rhinorrhea. TMs normal bilaterally. Throat normal. Uvula midline. NECK: Normal AROM. Supple. CHEST: No respiratory distress. Lungs clear throughout. Occasional nonproductive cough. HEART: Regular rate and rhythm. No murmur appreciated. ABDOMEN: Soft, nontender, nondistended, normal active bowel sounds. EXTREMITIES: Normal range of motion. No edema. SKIN: Warm, dry, no rash. Capillary refill normal. Normal skin turgor. NEURO: Alert and oriented x3. Gait steady. PSYCH: Normal affect. Course Course Emergency Course: Patient is aware of diagnosis, understands and agrees to treatment plan. Anticipatory guidance given. Patient agrees to follow-up as directed and is aware of reasons to seek care at the emergency department. Portions of this record may have been created with voice recognition software Level of Care: Express Care Visit MDM - URI/Sore Throat MDM Narrative Medical decision making narrative: Discussed physical exam findings. Declined strep test. Advised supportive measures and signs/symptoms to go to the ER. Pt is appropriate for outpt treatment and f/u. Differential Diagnosis Differential diagnosis: Likely upper respiratory infection, otitis media, viral infection, bronchitis and pharyngitis Discharge Plan Discharge Clinical Impression: Viral infectio
[2023-09-13 19:50] VITALS: BP 137/72; PULSE 71; RESP 16; TEMP 36.9; O2SAT 100
== END 2023-09-13 20:02 | disposition home or self-care (01) ==
PROVIDERS: Emergency Provider Nurse Practitioner Family; PCP Family Medicine
DX: B34.9 Viral infection, unspecified (principal); F17.220 Nicotine dependence, chewing tobacco, uncomplicated
CPT/HCPCS: 99213; G0463

== ENCOUNTER 2023-12-01 10:01 | Emergency (ER) | payer BC, SELFPAY ==
[2023-12-01 10:08] VITALS: BP 127/79; PULSE 89; RESP 16; TEMP 36.2; O2SAT 99
--- NOTE | 2023-12-01 10:49 | ED.GENADULT ---
HPI - General Adult General Chief complaint: Abdominal Pain Stated complaint: PAINFUL BULGE IN GROIN AREA Source: patient Mode of arrival: ambulatory Limitations: no limitations History of Present Illness HPI narrative: patient presents for evaluation of right inguinal pain. Symptom onset today. He was working in an attic yesterday and could have strained a muscle in the affected area. He is hoping that he does not have a hernia. He denies any nausea, vomiting, inability to pass stool. Denies any urinary symptoms or testicular pain. He is and states no chance of STI. Denies any abdominal pain, nausea, vomiting, fever, or chills. Related Data Home Medications Medication Instructions Recorded Confirmed diazepam 5 mg tablet 5 mg PO DAILY 01/02/23 09/13/23 Allergies Allergy/AdvReac Type Severity Reaction Status Date / Time No Known Allergies Allergy Verified 01/02/23 13:09 Review of Systems Review of Systems: CONSTITUTIONAL: Denies fever, chills, or sweats. EYES: Denies visual changes, redness, or discharge. ENT: Denies rhinorrhea, congestion, sore throat, or otalgia. CARDIOVASCULAR: Denies chest pain, palpitations, or edema. RESPIRATORY: Denies cough or dyspnea. GASTROINTESTINAL: Denies abdominal pain, nausea, vomiting, or diarrhea. GENITOURINARY: Denies dysuria or hematuria. SKIN: Denies rash or itching. MUSCULOSKELETAL: Reports right inguinal pain. Denies back pain, or joint pain NEUROLOGIC: Denies headache, numbness, dizziness, or weakness. PSYCHIATRIC: Denies anxiety or depression. PMFSH Past Medical History Medical History Kidney stones Surgical History Surgical History History of appendectomy Family History Family History Other Diabetes mellitus Family history of cardiovascular disease Family history of elevated blood lipids Social History Social History Smokeless tobacco user: chewing tobacco Alcohol intake: current Exam Narrative: GENERAL: Well-appearing, well-nourished, and in no acute distress. HEAD: Normocephalic, atraumatic. EYES: PERRLA and EOMI. ENT: Nares clear, no rhinorrhea or epistaxis. Mucous membranes moist. Oropharynx without tonsillar hypertrophy exudate or other lesions. Bilateral TMs pearly clarke nonbulging NECK: Supple. No adenopathy or masses. No carotid bruits or JVD CHEST: Clear to auscultation. No respiratory distress. No wheezes rales or rhonchi HEART: Regular rate and rhythm. No murmur heard. Normal peripheral pulses. ABDOMEN: Soft, nontender, nondistended, normal active bowel sounds. GENITALS: No testicular masses or tenderness. No urethral discharge. I do not appreciate a right inguinal hernia or any inguinal lymphadenopathy. EXTREMITIES: Normal range of motion. No edema. SKIN: Warm, dry, no rash. NEURO: No focal deficits. Alert and oriented x3. PSYCH: Normal mood and affect. Course Course Emergency Course: This is a 28-year-old male who presented for evaluation of right inguinal pain. Differentials include musculoskeletal strain, inguinal lymphadenopathy, epididymitis, varicocele/ hydrocele/ spermatocele and right inguinal hernia. He has no emergent symptoms warranting an evaluation in the ED. did offer to check him for sexually transmitted infections and send a urinalysis. He declined. I recommended he wear check strep, take NSAIDs for pain and follow up with his provider this coming week. Should go to the emergency department for vomiting, inability to pass stool, fever or testicular pain. Pt in agreement with plan of care. Level of Care: Express Care Visit Vital Signs Vital signs: Vital Signs Temperature 36.2 C L 12/01/23 10:08 Pulse Rate 89 12/01/23 10:08 Respiratory
== END 2023-12-01 10:50 | disposition home or self-care (01) ==
PROVIDERS: Emergency Provider Nurse Practitioner; PCP Family Medicine
DX: K40.90 Unilateral inguinal hernia, without obstruction or gangrene, not specified as recurrent (principal)
CPT/HCPCS: 99211; G0463

== ENCOUNTER 2023-12-13 13:40 | Emergency (ER) | payer BC, SELFPAY ==
--- NOTE | 2023-12-13 14:03 | ED.MALEGU ---
HPI - Male Genitourinary General Chief complaint: Urogenital-Male Stated complaint: URINARY PRESSURE S/P KIDNEY STONES Time Seen by Provider: 12/13/23 14:15 Source: patient, RN notes reviewed and old records reviewed Mode of arrival: ambulatory Limitations: no limitations History of Present Illness HPI Narrative: 28-year-old female presents to the [facility] with urinary pressure. Reports that he passed a kidney stone on Saturday, 2 days ago has had irritation since. Patient wants to make sure he is not having a UTI. Denies abdominal pain. States that yesterday he had some flank pain but taken ibuprofen and the pain went away. Has an appointment on the with a urologist Related Data Home Medications Medication Instructions Recorded Confirmed diazepam 5 mg tablet 5 mg PO DAILY 01/02/23 12/13/23 Allergies Allergy/AdvReac Type Severity Reaction Status Date / Time No Known Allergies Allergy Verified 12/13/23 14:11 Review of Systems Review of Systems: All systems reviewed & are unremarkable except as noted in HPI and below Constitutional: Constitutional: Reports no additional constitutional complaints Eyes: Eyes: Reports no additional eye complaints ENT: Reports system reviewed and no additional complaints, except as documented Cardiovascular: Cardiovascular: Reports no additional cardiovascular complaints, Denies chest pain and Denies dyspnea Respiratory: Respiratory: Reports no additional respiratory complaints, Denies chest congestion, Denies cough and Denies dyspnea Gastrointestinal: Gastrointestinal: Reports no additional gastrointestinal complaints, Denies abdominal pain, Denies nausea and Denies vomiting Genitourinary: Genitourinary: Reports as per HPI Musculoskeletal: Musculoskeletal: Reports no additional musculoskeletal complaints Integumentary/Breasts: Skin/Breast: Reports system reviewed and no additional complaints, except as docu Neurologic: Reports system reviewed and no additional complaints, except as documented Psychiatric: Psychiatric: Reports no additional psychiatric complaints Allergic/Immunologic: Allergic/Immunologic: Reports no additional allergic/immunologic complaints [facility] Past Medical History Medical History Anxiety Kidney stones Nephrolithiasis Surgical History Surgical History History of appendectomy No pertinent past surgical history Family History Family History Other Diabetes mellitus Family history of cardiovascular disease Family history of elevated blood lipids Social History Social History Smoking status: Never smoker Smokeless tobacco user: chewing tobacco Alcohol intake: current Comments At the time of my signature, I reviewed and agree with the nursing past medical, surgical, social, and family history. There is no relevant family history pertinent to the patient complaint. Exam Const: General: cooperative, healthy appearing, comfortable, no acute distress, well developed, alert and well nourished Nutritional Appearance: well nourished Orientation/consciousness: patient oriented x3 Limitations: no limitations HENMT: Head: normal to inspection Ears: hearing grossly normal bilaterally and external ears normal Face/Nose/Sinus: Normal external nose present, Normal nares present, Normal nasal mucous membranes and turbinates present, normal facial exam and face symmetric Face and sinus: normal facial exam and face symmetric Mouth: Yes Normal oral and palatal mucosa present, Yes lip normal and Yes moist mucous membranes Eyes: General: appearance normal, both eyes and all related structures Alignment and Position: alignment normal Periorbital: periorbital findings normal Pupils: Equal, round and reactive pupils present EOM: EO
[2023-12-13 14:09] VITALS: BP 139/78; PULSE 86; RESP 16; TEMP 36.6; O2SAT 100
== END 2023-12-13 14:55 | disposition home or self-care (01) ==
LOC: EXPGOSH 13:57
PROVIDERS: Emergency Provider Nurse Practitioner; PCP Family Medicine
DX: R30.0 Dysuria (principal); Z87.442 Personal history of urinary calculi; F41.9 Anxiety disorder, unspecified
CPT/HCPCS: 81003; 87086; 99213; G0463

== ENCOUNTER 2024-01-22 09:16 | Emergency (ER) | payer BC, SELFPAY ==
[2024-01-22 09:23] VITALS: BP 133/84; PULSE 83; RESP 16; TEMP 36.7; O2SAT 100
--- NOTE | 2024-01-22 09:38 | ED.URI ---
HPI - URI/Sore Throat General Chief Complaint: Upper Respiratory Infection Stated Complaint: Fever;Congestion;Bodyaches Time Seen by Provider: 01/22/24 09:38 Source: patient Mode of arrival: ambulatory Limitations: no limitations History of Present Illness HPI Narrative: 28-year-old male with no significant medical history presents today with complaint of cough, congestion, fever, fatigue and body aches for 4 days. Afebrile at Express Care. Patient taking DayQuil to treat symptoms. Denies chest pain and shortness of breath. No nausea vomiting diarrhea. All systems reviewed and negative except as noted above. Related Data Home Medications Medication Instructions Recorded Confirmed diazepam 5 mg tablet 5 mg PO DAILY 01/02/23 01/22/24 Allergies Allergy/AdvReac Type Severity Reaction Status Date / Time No Known Allergies Allergy Verified 01/22/24 09:25 Review of Systems Review of Systems: CONSTITUTIONAL: reports fever, chills, or sweats. EYES: Denies visual changes, redness, or discharge. ENT: Reports rhinorrhea, congestion, sore throat. Denies otalgia. CARDIOVASCULAR: Denies chest pain, palpitations, or edema. RESPIRATORY: reports cough. Denies dyspnea. GASTROINTESTINAL: Denies abdominal pain, nausea, vomiting, or diarrhea. GENITOURINARY: Denies dysuria or hematuria. SKIN: Denies rash or itching. MUSCULOSKELETAL: Denies back pain, joint pain, or myalgia. NEUROLOGIC: Denies headache, numbness, or weakness. PSYCHIATRIC: Denies anxiety or depression. All other systems reviewed are negative, except as documented in HPI. [facility] Past Medical History Medical History Anxiety Kidney stones Nephrolithiasis Surgical History Surgical History History of appendectomy No pertinent past surgical history Family History Family History Other Diabetes mellitus Family history of cardiovascular disease Family history of elevated blood lipids Social History Social History Smoking status: Never smoker Smokeless tobacco user: chewing tobacco Alcohol intake: current Comments At time of signature, agree with nursing past medical, surgical, social and family history. There is no relevant family history pertinent to the presenting complaint. Exam Narrative: GENERAL: This is a well-nourished, well-developed patient, in no apparent distress. HEAD: normocephalic, atraumatic. EYES: PERRL. Sclera clear/white. Vision is grossly intact. EARS: External ears normal, auditory canals clear and without drainage, TMs normal without perforation. Hearing grossly intact. NOSE: External nose normal with clear nasal drainage, mild congestion. Erythema to bilateral nares. THROAT: Mucous membranes moist, Mild erythema postnasal drainage. NECK: Neck supple, non-tender without lymphadenopathy, masses or thyromegaly. CARDIOVASCULAR: Regular rate and rhythm without murmurs, gallops, or rubs. RESPIRATORY: Clear to auscultation. Breath sounds equal bilaterally. No wheezes, rales, or rhonchi. SKIN: warm, Dry, intact with no suspicious lesions or rash, good texture and turgor. NEURO: awake, alert, and oriented to person, place and time. There were no obvious focal neurologic abnormalities. EXTREMITIES: No joint tenderness, effusion, or edema noted. Course Course Level of Care: Express Care Visit Vital Signs Vital signs: Vital Signs Temperature 36.7 C 01/22/24 09:23 Pulse Rate 83 01/22/24 09:23 Respiratory Rate 16 01/22/24 09:23 Blood Pressure 133/84 01/22/24 09:23 Pulse Oximetry 100 01/22/24 09:23 Temperature 36.7 C 01/22/24 09:23 Pulse Rate 83 01/22/24 09:23 Respiratory Rate 16 01/22/24 09:23 Blood Pressure 133/84 01/22/24 09:23 Pulse Oximetry 100 02/
== END 2024-01-22 09:49 | disposition home or self-care (01) ==
PROVIDERS: Emergency Provider Nurse Practitioner Family; PCP Family Medicine
DX: J06.9 Acute upper respiratory infection, unspecified (principal); R05.9 Cough, unspecified; Z20.822 Contact with and (suspected) exposure to COVID-19; F41.9 Anxiety disorder, unspecified
CPT/HCPCS: 87426; 87804; 99213; G0463

== ENCOUNTER 2024-07-17 09:22 | Emergency (ER) | payer BC, SELFPAY ==
[2024-07-17 09:22] VITALS: BP 124/76; PULSE 84; RESP 16; TEMP 36.3; O2SAT 99
--- NOTE | 2024-07-17 09:38 | ED.GIBLEED ---
HPI - GI Bleed General Chief complaint: Unspecified Stated complaint: rectal bleeding Time Seen by Provider: 07/17/24 09:37 Source: patient Mode of arrival: ambulatory Limitations: no limitations History of Present Illness HPI Narrative: 29 year old male presents to the Emergency Department complaining of large hemorrhoid and rectal bleeding. States wiped this morning and large amount of blood on tissue. No significant rectal pain. Was impacted and constipated and seen at Clinic 4 days ago. Has used mag citrate and had liquid stool, no longer constipated. Has used hemorrhoidal cream topically and taking ibuprofen 400 mg bid. Has used Sitz baths with hot water. complaint: blood on toilet paper Onset (ago): minute(s) Severity: mild Relieving factors: none Exacerbating factors: bowel movement Context: hemorrhoids Associated symptoms: denies other symptoms Treatments Prior to Arrival: topical ointment Related Data Home Medications Medication Instructions Recorded Confirmed diazepam 5 mg tablet 5 mg PO DAILY 01/02/23 01/22/24 Allergies Allergy/AdvReac Type Severity Reaction Status Date / Time No Known Allergies Allergy Verified 01/22/24 09:25 Review of Systems Review of Systems: All systems reviewed & are unremarkable except as noted in HPI and below Constitutional: Constitutional: Reports as per HPI, Denies chills and Denies fever(s) Eyes: Eyes: Reports as per HPI ENT: Reports system reviewed and no additional complaints, except as documented Cardiovascular: Cardiovascular: Reports as per HPI and Denies chest pain Respiratory: Respiratory: Reports as per HPI, Denies chest congestion, Denies cough and Denies dyspnea Gastrointestinal: Gastrointestinal: Reports as per HPI, Denies abdominal pain, Reports constipation, Reports diarrhea, Denies nausea and Denies vomiting Genitourinary: Genitourinary: Reports no additional male genitourinary complaints Musculoskeletal: Musculoskeletal: Reports no additional musculoskeletal complaints Integumentary/Breasts: Skin/Breast: Reports system reviewed and no additional complaints, except as docu Neurologic: Reports system reviewed and no additional complaints, except as documented Psychiatric: Psychiatric: Reports no additional psychiatric complaints Endocrine: Endocrine: Reports no additional endocrine complaints Hematologic/Lymphatic: Hematologic/Lymphatic: Reports no additional hematologic/lymphatic complaints Allergic/Immunologic: Allergic/Immunologic: Reports no additional allergic/immunologic complaints PMFSH Past Medical History Medical History Anxiety Kidney stones Nephrolithiasis Surgical History Surgical History History of appendectomy No pertinent past surgical history Family History Family History Other Diabetes mellitus Family history of cardiovascular disease Family history of elevated blood lipids Social History Social History Smoking status: Never smoker Smokeless tobacco user: chewing tobacco Alcohol intake: current Exam Const: General: healthy appearing Nutritional Appearance: well nourished Orientation/consciousness: patient oriented x3 Limitations: no limitations HENMT: Head: normal to inspection Ears: external ears normal Face/Nose/Sinus: Normal external nose present Face and sinus: normal facial exam Mouth: Yes Normal oral and palatal mucosa present Eyes: Conjunctivae: conjunctivae normal Pupils: Equal, round and reactive pupils present EOM: EOMs intact bilaterally Direct Ophthalmoscopy: no photophobia Neck: Neck: normal visual inspection Chest: Chest palpation & inspection: normal inspection of the chest Resp: Effort & Inspection: normal respiratory effort Auscultation: clear to au
== END 2024-07-17 10:20 | disposition home or self-care (01) ==
PROVIDERS: Emergency Provider Emergency Medicine
DX: K64.4 Residual hemorrhoidal skin tags (principal)
CPT/HCPCS: 99281

== ENCOUNTER 2024-09-09 18:34 | Emergency (ER) | payer SELFPAY ==
[2024-09-09 18:47] VITALS: BP 140/80; PULSE 67; RESP 16; TEMP 36.6; O2SAT 100
--- NOTE | 2024-09-09 19:09 | ED.MALEGU ---
HPI - Male Genitourinary General Chief complaint: Urogenital-Male Stated complaint: uti symptoms Time Seen by Provider: 09/09/24 19:00 Source: patient, RN notes reviewed and old records reviewed Mode of arrival: ambulatory Limitations: no limitations History of Present Illness HPI Narrative: 29 year old male presents to [facility] care with complaints of 3 day history of some urinary urgency and pressure with urination and some fleeting episodes of testicle discomfort. Patient denies any redness, swelling or any warmth to testicles, denies constant discomfort states fleeting at times. 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 MD Complaint: testicle pain (fleeting episodes), dysuria and other (urinary pressure) Onset (ago): day(s) (3) Location: penis, right testicle and left testicle Severity scale (1-10): 5 Quality: aching Related Data Home Medications Medication Instructions Recorded Confirmed diazepam 5 mg tablet 5 mg PO DAILY 01/02/23 09/09/24 Allergies Allergy/AdvReac Type Severity Reaction Status Date / Time No Known Allergies Allergy Verified 09/09/24 18:55 Review of Systems Review of Systems: CONSTITUTIONAL: Denies fever, chills, or sweats. CARDIOVASCULAR: Denies chest pain, palpitations, or edema. RESPIRATORY: Denies cough or dyspnea. GASTROINTESTINAL: Denies abdominal pain, nausea, vomiting, or diarrhea. GENITOURINARY: Reports pressure with urination,,no frequency, some urgency., fleeting episodes of testicle pain denies any pain at this time. Denies flank pain or hematuria. SKIN: Denies rash or itching. MUSCULOSKELETAL: Denies back pain or myalgia. Denies CVA tenderness NEUROLOGIC: Denies headache All systems reviewed & are unremarkable except as noted in HPI and below PMFSH Past Medical History Medical History (Updated 09/11/24 @ 13:16 by Suzanne Aguayo NP) Anxiety Hemorrhoids Kidney stones Nephrolithiasis Surgical History Surgical History History of appendectomy Family History Family History Other Diabetes mellitus Family history of cardiovascular disease Family history of elevated blood lipids Social History Social History Smoking status: Never smoker Smokeless tobacco user: chewing tobacco Alcohol intake: current Do You Feel Safe in your Home?: Yes Lack of Transportation: No Lack of Food: Never True Current Housing: I Have Housing Concerned About Future Housing: No Difficulty Paying Gas/Electric Bills: No Difficulty Paying for Meds: YES Currently Unemployed: YES Education: High School Diploma/GED Difficulty w/ Childcare or Family Care: No Comments At time of signature, agree with nursing past medical, surgical, social and family history. There is no relevant family history pertinent to the presenting complaint Exam Narrative: GENERAL: Well-appearing, well-nourished, and in no acute distress. HEAD: Normocephalic, atraumatic. NECK: Supple. no lymphadenopathy CHEST: Clear to auscultation. No respiratory distress.SAO2 100% on room air HEART: Regular rate and rhythm. No murmur heard. Normal peripheral pulses. ABDOMEN: Soft, nontender, nondistended, normal active bowel sounds. No CVA tenderness pressure with urination with some rgency fleeting episodes testicle pain with no present pain reported. EXTREMITIES: Normal range of motion. No edema. SKIN: Warm, dry, no rash. NEURO: No focal deficits. Alert and oriented x3. Course Course Emergency Course: Patient is aware of diagnosis, understands and agrees to treatment
[2024-09-09 19:27] LABS: EDUAAPPEAR Clear; EDUABILI Negative (Negative); EDUABLOOD Negative (Negative); EDUACOLOR1 Yellow; EDUAGLUCOSE Negative (Negative); EDUAKETONE Negative (Negative); EDUALEUKO Negative (Negative); EDUANITRATE Negative (Negative); EDUAPROTEIN Negative (Negative); EDUAUROBILI 0.2
== END 2024-09-09 19:30 | disposition home or self-care (01) ==
PROVIDERS: Emergency Provider Registered Nurse
DX: R30.0 Dysuria (principal); F17.220 Nicotine dependence, chewing tobacco, uncomplicated; F41.9 Anxiety disorder, unspecified
CPT/HCPCS: 81003; 99213; G0463

== ENCOUNTER 2025-03-27 16:53 | Emergency (ER) | payer BC, SELFPAY ==
[2025-03-27 16:54] VITALS: BP 128/71; PULSE 110; RESP 18; TEMP 36.3; O2SAT 99
--- OUTSIDE RECORDS SUMMARY | 2025-03-27 16:55 | XMS_ITS | Clinical Summary ---
Author Organization [facility] Address [address] [facility], [facility] [address] [place] [address] Phone Care Team Providers Care Liturgical Music Director Name Role Phone Shaun Escobedo APRN, BRASS CHASER Primary Care Pr ovider Elmo Queen MD Unavailable Allergies No known active allergies Medications Hydrocortisone, Perianal, 2.5 % Cream Apply daily. Apply to rectum as directed. 28 g 1 4 Active meclizine (ANTIVERT) 25 MG Tablet Take 1 Tablet by mouth 3 times daily as needed for Dizziness. 30 Tablet 5 Active diazePAM (VALIUM) 5 MG TabletIndication s:Anxiety disorder, unspecified type Take 1 Tablet by mouth every 12 hours as needed for Anxiety. 60 Tablet 5 Active diazePAM (VALIUM) 5 MG TabletIndication s:Anxiety disorder, unspecified type Take 1 Tablet by mouth every 12 hours as needed for Anxiety. 60 Tablet 5 03/15/20 25 Discontinu ed(Reorder ) Active Problems Problem Noted Date Diagnosed Date Bleeding hemorrhoid 02/11/2024 Kidney stone 03/09/2022 Family history of stroke 07/13/2019 Anxiety disorder 06/30/2019 Encounters Date Type Department Care Team Description 03/21/2025 10:17 PM CDT - 03/22/2025 12:02 AM CDT Emergency [facility] Emergency [address] [place] [address] Waldemar Wood MD Right flank pain Discharge Disposition: Discharged to home or Selfcare 03/21/2025 Travel 03/15/2025 MyChart RX Renewal [facility] [address] [place] [address] Shaun Escobedo APRN, CORBY Medication Renewal Reviewed 02/02/2025 2:15 PM CDT Office Visit [facility] [address] [place] [address] Shaun Escobedo APRN, CORBY Benign paroxysmal positional vertigo, unspecified laterality (Primary Dx) Discharge Disposition: Discharged to home or Selfcare 02/01/2025 10:08 AM CDT - 02/01/2025 11:58 AM CDT [facility] Emergency [address] [place] [address] Elroy Bustillos MD Vertigo Discharge Disposition: Discharged to home or Selfcare 02/01/2025 Travel 02/01/[address] [facility] [address] [place] [phone] Shaun Escobedo APRN, CORBY Dizziness 01/04/2025 MyChart RX Renewal [facility] [address] [place] [address] Shaun Escobedo APRN, CORBY Medication Renewal Reviewed from Last 3 Months Immunizations Immunization Administration Dates Next Due DTAP VACCINE 07/19/1999, 6,03/25/1995,1993,1994 Hepatitis B Vaccine, Pediatric/adolescent 1994,1994,1994 Hib (PRP-OMP) Vaccine 03/25/1995,1994,01/1994 Inactivated Polio Vaccine 07/19/1999,11/1994,1994,1993 Influenza Vaccine, Quadrivalent, PF 11/06/2019,1 MMR Vaccine 07/19/1999,07/12/1995 TB Skin Test 12/05/2022 TDAP Vaccine 11/23/2018,07/07/2009 Varicella Vaccine Live 09/01/2008,09/04/2005 Family History Medical History Relation Name Comments Diabetes Father brenda Heart Attack Father brenda High Cholesterol Father brenda Stroke Father brenda Diabetes Mother hernesto Relation Name Status Comments Father brenda Mother hernesto Social History Tobacco Use Types Packs/Day Years Used Date Smoking Tobacco: Former Cigarettes Smokeless Tobacco: Current Chew Last attempted to quit: 11/25/2021 Tobacco Cessation:Ready to Q uit: No; Counseling Given: Yes Alcohol Use Standard Drinks/Week Comments Not Currently 0 (1 standard drink = 0.6 oz pur e alcohol) [facility] Utilities Answer Date Recorded In the past 12 months has th e electric, gas, oil, or water company threatened to shut off services in your home? No 02/01/2025 Social Connection and Isolat ion Panel [NHANES] Answer Date Recorded In a typical week, how many times do you talk on the phone with family, friends, or neighbors? More than three times a week 02/01/2025 How often do you get togethe r with friends or relatives? Once a week 02/01/2025 How often do you attend [facility] or zoroastrian services? Patient declined 02/01/2025 Do you belong to any clubs o r organizations such as restorationist groups, unions, fraternal or athletic groups, or school groups? Yes 02/01/2025 How often do you attend meet ings of the clubs or organizations you belong to? Never 02/01/2025 Are you , , di vorced, , never , or living with a partner? 02/01/2025 AUDIT-C Answer Date Recorded Q1: How often do you have a drink containing alcohol? Never 02/01/2025 Q2: How many drinks containi ng alcohol do you have on a typical day when you are drinking? Patient does not drink Q3: How often do you have si x or more drinks on one occasion? Never 02/01/2025 Overall Financial Resource Strain (CARDIA) Answe r Date Recorded How hard is it for you to pa y for the very basics like food, housing, medical care, and heating? Not hard at all 02/01/2025 PHQ-2 Answer Date Recorded Total Score - Questions 1-9 0 01/23 [facility] - Occupational Stress Questionnaire Answer Date Recorded Do you feel stress - tense, restless, nervous, or anxious, or unable to sleep at night because your mind is troubled all the time - these days? Rather much 02/01/2025 Exercise Vital Sign Answer Date Recorde d On average, how many days pe r week do you engage in moderate to strenuous exercise (like a brisk walk)? 5 days 02/01/2025 On average, how many minutes do you engage in exercise at this level? 60 min 02/01/2025 Hunger Vital Sign Answer Date Recorded Within the past 12 months, y ou worried that your food would run out before you got the money to buy more. Never true 02/02/20 25 Within the past 12 months, t he food you bought just didn't last and you didn't have money to get more. Never true 02/01/2025 PRAPARE - Transportation Answer Date Re corded In the past 12 months, has l ack of transportation kept you from medical appointments or from getting medications? No 01/23 In the past 12 months, has l ack of transportation kept you from meetings, work, or from getting things needed for daily living? No 02/01/2025 Housing Stability Vital Sign Answer Skinny e Recorded In the last 12 months, was t here a time when you were not able to pay the mortgage or rent on time? No 12/11/2023 In the last 12 months, how many places have you lived? 1 12/11/2023 In the last 12 months, was t here a time when you did not have a steady place to sleep or slept in a mcc (including now)? No 12/11/2023 Housing Stability Vital Sign Answer Skinny e Recorded In the last 12 months, was t here a time when you were not able to pay the mortgage or rent on time? No 02/01/2025 In the past 12 months, how m any times have you moved where you were living? 0 02/01/2025 At any time in the past 12 m onths, were you homeless or living in a mcc (including now)? No 02/01/2025 Education Answer Date Recorded What is the highest level of school you have completed or the highest degree you have received? GED or equivalent 05/2023 Sexually Active Control Partners Comments Yes None Female Sex and Gender Information Value Date Recorded Sex Assigned at Not on file Legal Sex Male 2:13 PM CDT Gender Identity Not on file Sexual Orientation Not on file Last Filed Vital Signs Vital Sign Reading Time Taken Comments Blood Pressure 130/68 03/22/2025 12:00 AM CDT Pulse 59 03/22/2025 12:00 AM CDT Temperature 36.4 C (97.6 F) 03/21/2025 10:14 PM CDT Respiratory Rate 15 03/21/2025 10:14 PM CDT Oxygen Saturation 99% 03/22/2025 12:00 AM CDT Inhaled Oxygen Concentration - - Weight 68 kg (150 lb) 03/21/2025 10:14 PM CDT Height 188 cm (6' 2 ) 03/21/2025 10:14 PM CDT Body Mass Index 19.26 03/21/2025 10:14 PM CDT Plan of Treatment Health Maintenance Due Date Last Done Comments DTaP/Tdap/Td Immunization (8 - Td or Tdap) 11/23/2028 11/23/2018, 07/07/2009, 07/19/1999, Additional history exists Td Immunization Every 10 Years (Adults With 1 Tdap) 11/23/2028 11/23/2018, 07/07/2009 Respiratory Syncytial Virus (RSV) Immunization (Adult) (1 - 1-dose 75+ series) 2069 Hepatitis B Immunization Completed 994, 1994, 1994 Influenza Immunization Discontinued 11/06/2019, 2017 Hepatitis C Virus (HCV) Screening Discontinued Meningococcal Immunization (ACWY) Aged Out No longer eligible based on patient's age to complete this topic Pneumococcal Immunization Combined Aged Out No longer eligible based on patient's age to complete this topic Rotavirus Immunization Aged Out No lo nger eligible based on patient's age to complete this topic SARS-COV-2 Immunization Discontinued Procedures Procedure Name Priority Date/Time Associated Diagnosis Comments URINALYSIS REFLEX IF INDICATED BY ABNORMAL RESULTS STAT 03/21/2025 11:[address] RENAL STONE STUDY (ABDOMEN AND PELVIS W/O CONTRAST) Stat with Interpretation 03/21/2025 10:49 PM CDT CBC WITH AUTO DIFFERENTIAL STAT 03/21/2025 10:39 PM CDT LIPASE STAT 03/21/2025 10:39 PM CDT CMP (COMPREHENSIVE METABOLIC PANEL) STAT 03/21/2025 10:39 PM CDT COMPLETE BLOOD COUNT (CBC) WITH DIFF STAT 03/21/2025 10:39 PM CDT URINALYSIS REFLEX IF INDICATED BY ABNORMAL RESULTS STAT 02/01/2025 11:10 AM CDT XR CHEST 2 VIEWS STAT 02/01/2025 10:25 AM CDT CBC WITH AUTO DIFFERENTIAL STAT 02/01/2025 9:58 AM CDT TROPONIN I, HIGH SENSITIVITY (HSTRP) STAT 02/01/2025 9:58 AM CDT CMP (COMPREHENSIVE METABOLIC PANEL) STAT 02/01/2025 9:58 AM CDT COMPLETE BLOOD COUNT (CBC) WITH DIFF STAT 02/01/2025 9:58 AM CDT EKG 12 LEAD STAT 02/01/2025 9:48 AM CDT EKG SCAN 02/01/2025 12:00 AM CDT from Last 3 Months Results * (ABNORMAL) Urinalysis w/ Reflex (03/21/2025 11:11 PM CDT) Only the most recent of2 resultswithin the time period is included. Pathologist [facility] SPECIFIC GRAVITY 1.025 1.003 - 1.030 03/21/2025 11:40 PM CDT [facility] URINE PH 6.0 5.0 - 9.0 03/21/2025 11:40 PM CDT [facility] WBC ESTERASE Negative Negative 03/21/2025 11:40 PM CDT [facility] NITRITE Negative Negative 03/21/2025 11:40 PM CDT [facility] PROTEIN, RANDOM URINE 30 mg/dL(A) Negative 03/21/2025 11:40 PM CDT [facility] URINE GLUCOSE, QUAL Negative Negative 03/21/2025 11:40 PM CDT [facility] URINE KETONES Negative Negative 03/21/2025 11:40 PM CDT [facility] UROBILINOGEN 1 mg/dL(A) Normal mg/dL 03/21/2025 11:40 PM CDT [facility] URINE BLOOD Negative Negative malcom/ul 03/21/2025 11:40 PM CDT [facility] URINALYSIS COLOR Yellow 03/21/20 11:40 PM CDT [facility] URINALYSIS CLARITY Clear 03/21/2025 11:40 PM CDT [facility] WBC (Urine) 0-5 Negative, 0-5 /hpf 03/21/2025 11:40 PM CDT [facility] URINE RBC'S 3-5(A) Negative, 0-2 /hpf 03/21/2025 11:40 PM CDT [facility] EPITHELIAL CELLS Negative /lpf 03/21/20 11:40 PM CDT [facility] BACTERIA, URINE Few(A) Negative /hpf 03/21/2025 11:40 PM CDT [facility] CRYSTALS Calcium oxalate 03/21/2025 11:40 PM CDT [facility] Urine URINE SPECIMEN / Unknown Non-Phlebotomy Collection / Unknown 03/21/2025 11:11 PM CDT 03/21/2025 11:18 PM CDT us Waldemar Wood MD URINE ORDERABLES Final Re sult [facility] [place] [address] * CT RENAL STONE STUDY (ABDOMEN AND PELVIS W/O CONTRAST) (03/21/2025 10:49 PM CDT) Anatomical Region Laterality Modality Abdomen N/A Computed Tomogra phy 03/21/2025 11:1 3 PM CDT Impressions 03/21/2025 11:15 PM CDT IMPRESSION: 1. No urinary tract obstruction/inflammation is seen. Numerous nonobstructing calculi again noted. 2. Mild fluid fullness of small bowel loops in the left lower quadrant is nonspecific, likely transient but follow-up imaging could be considered if symptoms worsen. Narrative 03/21/2025 11:15 PM CDT EXAM DESCRIPTION: CT RENAL STONE STUDY (ABDOMEN AND PELVIS W/O CONTRAST) REASON FOR STUDY: Right flank pain since yesterday TECHNIQUE: CT scan of the abdomen and pelvis performed without intravenous and without oral contrast using helical scanning technique. Reconstructed coronal and sagittal MPR images reviewed. All images stored on PACS. Automated exposure control was used as a dose optimization technique for this examination. COMPARISON: 10/04/2024 FINDINGS: LOWER CHEST: Lung bases are clear. Heart size normal. No effusion. LIVER/BILIARY: Liver unremarkable. Biliary tree normal in caliber. GALLBLADDER: Normal. SPLEEN: Normal. PANCREAS: Normal. ADRENAL GLANDS: Normal. KIDNEYS/URINARY TRACT: Numerous nonobstructing stones on the left and several on the right. Ureters and bladder appear normal. GI: Stomach and small bowel overall normal in caliber. Mild fluid fullness of small bowel loops in the left abdomen. Colon unremarkable. Appendix not seen. OTHER ABDOMINAL/PELVIS: Major vascular structures are normal in caliber. Normal size lymph node or free fluid. MSK: Unremarkable. BODY WALL: Unremarkable. THIS IS AN ELECTRONICALLY VERIFIED FINAL REPORT 03/21/2025 11:13 PM - Electronically signed by Cheng Medeiros M.D. AR: MIO Report ID: [id number] Reading Location: [place] [address] Procedure Note Cheng Medeiros MD - 03/21/2025 EXAM DESCRIPTION: CT RENAL STONE STUDY (ABDOMEN AND PELVIS W/O CONTRAST) REASON FOR STUDY: Right flank pain since yesterday TECHNIQUE: CT scan of the abdomen and pelvis performed without intravenous and without oral contrast using helical scanning technique. Reconstructed coronal and sagittal MPR images reviewed. All images stored on PACS. Automated exposure control was used as a dose optimization technique for this examination. COMPARISON: 10/04/2024 FINDINGS: LOWER CHEST: Lung bases are clear. Heart size normal. No effusion. LIVER/BILIARY: Liver unremarkable. Biliary tree normal in caliber. GALLBLADDER: Normal. SPLEEN: Normal. PANCREAS: Normal. ADRENAL GLANDS: Normal. KIDNEYS/URINARY TRACT: Numerous nonobstructing stones on the left and several on the right. Ureters and bladder appear normal. GI: Stomach and small bowel overall normal in caliber. Mild fluid fullness of small bowel loops in the left abdomen. Colon unremarkable. Appendix not seen. OTHER ABDOMINAL/PELVIS: Major vascular structures are normal in caliber. Normal size lymph node or free fluid. MSK: Unremarkable. BODY WALL: Unremarkable. THIS IS AN ELECTRONICALLY VERIFIED FINAL REPORT 03/21/2025 11:13 PM - Electronically signed by Cheng Medeiros M.D. AR: MIO Report ID: [id number] Reading Location: [place] [address] IMPRESSION: 1. No urinary tract obstruction/inflammation is seen. Numerous nonobstructing calculi again noted. 2. Mild fluid fullness of small bowel loops in the left lower quadrant is nonspecific, likely transient but follow-up imaging could be considered if symptoms worsen. us Waldemar Wood MD IMG CT ORDERABLES Final R esult * (ABNORMAL) CBC with Auto Differential (03/21/2025 10:39 PM CDT) Only the most recent of2 resultswithin the time period is included. WBC 9.56 4.00 - 12.00 10(3)/mcL 03/21/2025 10:55 PM CDT [facility] RBC 5.42 4.40 - 5.80 10(6)/mcL 03/21/2025 10:55 PM CDT [facility] HEMOGLOBIN (HGB) 15.4 13.0 - 16.5 g/dL 03/21/2025 10:55 PM CDT [facility] HEMATOCRIT (HCT) 46.0 38.0 - 50.0 % 03/21/2025 10:55 PM CDT [facility] MCV 84.9 82.0 - 96.0 fL 03/21/2025 10:55 PM CDT [facility] MCH 28.4 26.0 - 32.0 pg 03/21/2025 10:55 PM CDT [facility] MCHC 33.5 31.0 - 36.0 g/dL 03/21/2025 10:55 PM CDT [facility] PLATELET COUNT 333 140 - 440 10(3)/mcL 03/21/2025 10:55 PM CDT [facility] RDW 12.8 11.8 - 15.5 % 03/21/2025 10:55 PM CDT [facility] MPV 10.6 8.0 - 12.6 fL 03/21/2025 10:55 PM CDT [facility] NEUTROPHILS 66.4 40.0 - 68.0 % 03/21/2025 10:55 PM CDT [facility] LYMPHOCYTES 24.6 19.0 - 49.0 % 03/21/2025 10:55 PM CDT [facility] MONOCYTES 6.5 3.0 - 13.0 % 03/21/2025 10:55 PM CDT [facility] EOSINOPHILS 1.9 0.0 - 8.0 % 03/21/2025 10:55 PM CDT [facility] BASOPHILS 0.6 0.0 - 1.0 % 03/21/2025 10:55 PM CDT [facility] ABSOLUTE NEUTROPHILS 6.35(H) 1.40 - 5.30 10(3)/mcL 03/21/2025 10:55 PM CDT [facility] ABSOLUTE LYMPHOCYTES 2.35 0.90 - 3.30 10(3)/mcL 03/21/2025 10:55 PM CDT [facility] ABSOLUTE MONOCYTES 0.62 0.10 - 0.90 10(3)/mcL 03/21/2025 10:55 PM CDT [facility] ABSOLUTE EOSINOPHIL 0.18 0.00 - 0.50 10(3)/mcL 03/21/2025 10:55 PM CDT [facility] ABSOLUTE BASOPHILS 0.06 0.00 - 0.10 10(3)/mcL 03/21/2025 10:55 PM CDT [facility] NRBC PER 100 WBC 0 03/21/20 10:55 PM CDT [facility] Blood Venipuncture / Unknown 03/21/2025 10:39 PM CDT 03/21/2025 10:52 PM CDT us Waldemar Wood MD HEMATOLOGY ORDERABLES Fin al Result [facility] [address] [place] [address] * Lipase (03/21/2025 10:39 PM CDT) Pathologist [facility] LIPASE 27 8 - 78 U/L 03/21/2025 11:14 PM CDT [facility] Blood Venipuncture / Unknown 03/21/2025 10:39 PM CDT 03/21/2025 10:52 PM CDT Waldemar Wood MD CHEMISTRY ORDERABLES Malka l Result [facility] [address] [place] [address] * (ABNORMAL) CMP (03/21/2025 10:39 PM CDT) Only the most recent of2 resultswithin the time period is included. Pathologist [facility] SODIUM 143 136 - 145 mmol/L 03/21/2025 11:14 PM CDT [facility] POTASSIUM 3.4(L) 3.5 - 5.1 mmol/L 03/21/2025 11:14 PM CDT [facility] CHLORIDE 107 98 - 107 mmol/L 03/21/2025 11:14 PM CDT [facility] CO2, VENOUS 26 22 - 30 mmol/L 03/21/2025 11:14 PM CDT [facility] ANION GAP 13.4 <18.0 mmol/L 03/21/2025 11:14 PM CDT [facility] GLUCOSE 98 70 - 99 mg/dL 03/21/2025 11:14 PM CDT [facility] BUN 12 9 - 21 mg/dL 03/21/2025 11:14 PM CDT [facility] CREATININE, BLOOD 0.94 0.70 - 1.30 mg/dL 03/21/2025 11:14 PM CDT [facility] BUN/CREATININE RATIO 13 12 - 20 ratio 03/21/2025 11:14 PM CDT [facility] TOTAL PROTEIN 7.6 6.0 - 8.0 g/dL 03/21/2025 11:14 PM CDT [facility] ALBUMIN 4.4 3.5 - 5.0 g/dL 03/21/2025 11:14 PM CDT [facility] A/G RATIO 1.4 1.0 - 2.2 03/21/2025 11:14 PM CDT [facility] CALCIUM 9.4 8.7 - 10.5 mg/dL 03/21/2025 11:14 PM CDT [facility] T BILI 0.5 0.2 - 1.2 mg/dL 03/21/2025 11:14 PM CDT [facility] SGOT (AST) 22 <43 U/L 03/21/2025 11:14 PM CDT [facility] SGPT (ALT) 15 <56 U/L 03/21/2025 11:14 PM CDT [facility] ALKALINE PHOSPHATASE 60 40 - 150 U/L 03/21/2025 11:14 PM CDT [facility] GFR, ESTIMATED >60 >=60 03/21/2025 11:14 PM CDT [facility] Comment: Creatinine Clearance is the preferred criteria for selecting drug dose adjustments in renally impaired patients. The GFR is provided as additional pertinent clinical information. GFR is reported in mL/min/1.73 sq m. Calculation based on the Chronic Kidney Disease Epidemiology Collaboration (CKD- EPI) equation refit without adjustment for race. GFR, EST. >60 >=60 025 11:14 PM CDT [facility] GFR, EST. NONAFRICAN >60 >=60 03/21/2025 11:14 PM CDT [facility] Blood Venipuncture / Unknown 03/21/2025 10:39 PM CDT 03/21/2025 10:52 PM CDT us Waldemar Wood MD CHEMISTRY ORDERABLES Malka l Result [facility] [address] [place] [address] * XR CHEST 2 VIEWS (02/01/2025 10:25 AM CDT) Anatomical Region Laterality Modality Chest N/A Digital Radiogra phy 02/01/2025 10:4 3 AM CDT Impressions 02/01/2025 10:45 AM CDT IMPRESSION: Mild patchy right infrahilar airspace opacities, which may be related to subsegmental atelectasis/scarring versus developing airspace disease. Narrative 02/01/2025 10:45 AM CDT EXAM DESCRIPTION: XR CHEST 2 VIEWS REASON FOR STUDY: dizziness X 3 DAYS. reports intermittent palpitations TECHNIQUE: Frontal and lateral radiographic view(s) of the chest. COMPARISON: 11/30/2022 FINDINGS: The heart, mediastinum, and pulmonary vasculature are grossly stable. There is no definite evidence of a pneumothorax. There is no definite evidence of a pleural effusion. There are mild patchy right infrahilar airspace opacities. The osseous structures are acutely grossly stable. THIS IS AN ELECTRONICALLY VERIFIED FINAL REPORT 02/01/2025 10:43 AM - Electronically signed by Aury Russell D.O. PS: PS Report ID: [id number] Reading Location: [id number] Procedure Note Aury Russell DO - 02/01/2025 EXAM DESCRIPTION: XR CHEST 2 VIEWS REASON FOR STUDY: dizziness X 3 DAYS. reports intermittent palpitations TECHNIQUE: Frontal and lateral radiographic view(s) of the chest. COMPARISON: 11/30/2022 FINDINGS: The heart, mediastinum, and pulmonary vasculature are grossly stable. There is no definite evidence of a pneumothorax. There is no definite evidence of a pleural effusion. There are mild patchy right infrahilar airspace opacities. The osseous structures are acutely grossly stable. THIS IS AN ELECTRONICALLY VERIFIED FINAL REPORT 02/01/2025 10:43 AM - Electronically signed by Aury Russell D.O. PS: PS Report ID: [id number] Reading Location: [id number] IMPRESSION: Mild patchy right infrahilar airspace opacities, which may be related to subsegmental atelectasis/scarring versus developing airspace disease. Elroy Bustillos MD [facility] ORDERABLES Final Result * TROPONIN I, HIGH SENSITIVITY (HSTRP) (02/01/2025 9:58 AM CDT) TROPONIN I, HIGH SENSITIVITY- [place] <3 <=35 ng/L 02/01/2025 10:31 AM CDT [facility] Comment: High-sensitivity troponin I results are reported in ng/L making the result appear to be 1,000 times higher than the contemporary troponin I value which is reported in ng/ml. Results from [place]. Blood Venipuncture / Unknown 02/01/2025 9:58 AM CDT 02/01/2025 10:05 AM CDT us Elroy Bustillos MD CHEMISTRY ORDERABLES Final Resul t Performing Organization Address City/[facility]/ZIP Co de Phone Number [facility] [place] [address] * EKG 12 LEAD (02/01/2025 9:48 AM CDT) Ventricular Rate 73 BPM EXTERNAL EKG Atrial Rate 73 BPM EXTERNAL EKG P-R Interval 120 ms EXTERNAL EKG QRS Duration 92 ms EXTERNAL EKG Q-T Duration 392 ms EXTERNAL EKG QTC CALCULATION 431 ms EXTERNAL EKG P [place] 51 degrees EXTERNAL EKG R [place] 76 degrees EXTERNAL EKG T [place] 50 degrees EXTERNAL EKG 02/01/2025 9:48 AM CDT Impressions EXTERNAL EKG - 02/02/2025 8:24 PM CDT Normal sinus rhythm with sinus arrhythmia Normal ECG When compared with ECG of 05-DEC-2022 15:27, premature atrial complexes are no longer present Confirmed by HARSHAL CHANDRA ([id number]) on 02/02/2025 8:24:16 PM Narrative Procedure Note Harshal Chandra MD - 02/02/2025 IMPRESSION: Normal sinus rhythm with sinus arrhythmia Normal ECG When compared with ECG of 05-DEC-2022 15:27, premature atrial complexes are no longer present Confirmed by HARSHAL CHANDRA ([id number]) on 02/02/2025 8:24:16 PM us Elroy Bustillos MD IMG ECG ORDERABLES Final Result EXTERNAL EKG * EKG SCAN (02/01/2025 12:00 AM CDT) 02/01/2025 us Provider Scan IMG ECG ORDERABLES Final Result RESULTING AGENCY from Last 3 Months Insurance [facility] Care Teams Liturgical Music Director Relationship Specialty Start Date End Date Shaun Escobedo APRN, BRASS CHASER #2 [facility] [address] [place] [address] PCP - General Advanced Practice Nurse 05/20/24 Elmo Queen MD [facility] [facility] [address] [place] [address] Consulting Physician Urology 10/30/24
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
--- OUTSIDE RECORDS SUMMARY | 2025-03-27 16:55 | XMS_ITS | Clinical Summary ---
Author Organization [facility] Address [facility] [place] [address] Care Team Providers Care Enrollment Clerk Name Role Phone Shaun Escobedo NP Primary Care Provider Allergies No known active allergies Medications HYDROcodone-conchita taminophen (NORCO) 5-325 MG tabletIndicatio ns:Acute Pain < 3 Day Supply Take 1 tablet by mouth every 6 (six) hours as needed for Pain. Indications: Acute Pain < 3 Day Supply 10 tablet 4 Active hydrocortisone 2.5 % cream Apply topically 2 (two) times daily. 28 g 4 Active Social History Tobacco Use Types Packs/Day Years Used Date Smoking Tobacco: Never Smokeless Tobacco: Never Tobacco Cessation:Counseling Given: Not Answered Alcohol Use Standard Drinks/Week Comments Not Currently 0 (1 standard drink = 0.6 oz pur e alcohol) Sex and Gender Information Value Date Recorded Sex Assigned at Not on file Legal Sex Male 12:36 PM CDT Gender Identity Not on file Sexual Orientation Not on file Last Filed Vital Signs Vital Sign Reading Time Taken Comments Blood Pressure 133/81 07/17/2024 12:42 PM CDT Pulse 81 07/17/2024 12:42 PM CDT Temperature 36.6 C (97.8 F) 07/17/2024 12:42 PM CDT Respiratory Rate 18 07/17/2024 12:42 PM CDT Oxygen Saturation 100% 07/17/2024 12:42 PM CDT Inhaled Oxygen Concentration - - Weight 64.2 kg (141 lb 8.6 oz) 07/17/2024 12:42 PM CDT Height 188 cm (6' 2 ) 07/17/2024 12:42 PM CDT Body Mass Index 18.17 07/17/2024 12:42 PM CDT Plan of Treatment Health Maintenance Due Date Last Done Comments Annual Physical 1997 Hepatitis C 2012 COVID-19 Vaccine (2023-25 season) 2024 DTaP, Tdap and Td Vaccines (8 - Td or Tdap) 11/23/2028 11/23/2018, 07/07/2009, 07/19/1999, Additional history exists Hepatitis B Vaccines Completed 1994, 1994, 1994 HPV Vaccines Aged Out No longer eligi ble based on patient's age to complete this topic Meningococcal B Vaccine Aged Out No l onger eligible based on patient's age to complete this topic Meningococcal Vaccine Aged Out No farzaneh weston eligible based on patient's age to complete this topic Pneumococcal Vaccine: Pediatrics (0 to 5 Years) and At-Risk Patients (6 to 49 Years) Aged Out No longer eligible based on patient's age to complete this topic RSV Immunizations Under 20 Months Aged Out No longer eligible based on patient's age to complete this topic Care Teams Enrollment Clerk Relationship Specialty Start Date End Date Shaun Escobedo NP [address] [address] PCP - General FAMILY PRACTICE 07/17/24
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
== END 2025-03-27 17:36 | disposition home or self-care (01) ==
PROVIDERS: Emergency Provider Internal Medicine Critical Care Medicine; PCP Orthopaedic Surgery
DX: H92.01 Otalgia, right ear (principal)
CPT/HCPCS: 99281

== ENCOUNTER 2025-06-24 19:41 | Emergency (ER) | payer BC, SELFPAY ==
--- NOTE | ~2025-06-24 | XR_ITS ---
XR knee RT 3V 06/24/2025 20:08 INDICATION: Right knee pain. Stress fracture. PROCEDURE: 3 views right knee COMPARISON: No prior studies for comparison. FINDINGS: Fracture, dislocation or subluxation is not identified. The soft tissues appear within norm al limits. No foreign bodies are identified. IMPRESSION: 1: NO ACUTE BONE OR JOINT ABNORMALITY IDENTIFIED. Reviewed, dictated and finalized at location B.
[2025-06-24 19:41] VITALS: BP 143/99; PULSE 77; RESP 18; TEMP 36.6; O2SAT 100
--- OUTSIDE RECORDS SUMMARY | 2025-06-24 19:43 | XMS_ITS | Clinical Summary ---
Author Organization [facility] Address [address], [address] [place] [address] Phone Care Team Providers Care Radar Repairer Name Role Phone Shaun Escobedo APRN, REHANGER Primary Care Pr ovider Elmo Queen MD Unavailable Allergies No known active allergies Medications Hydrocortisone, Perianal, 2.5 % Cream Apply daily. Apply to rectum as directed. 28 g 1 02/07/2024 Active meclizine (ANTIVERT) 25 MG Tablet Take 1 Tablet by mouth 3 times daily as needed for Dizziness. 30 Tablet 02/01/2025 Active penicillin v potassium 500 MG Tablet Take 500 mg by mouth every 8 hours. 03/20/2025 Active diazePAM (VALIUM) 5 MG TabletIndication s:Anxiety disorder, unspecified type Take 1 Tablet by mouth every 12 hours as needed for Anxiety. 60 Tablet 05/17/2025 Active Active Problems Problem Noted Date Diagnosed Date Bleeding hemorrhoid 02/11/2024 Kidney stone 03/09/2022 Family history of stroke 07/13/2019 Anxiety disorder 06/30/2019 Encounters Date Type Department Care Team Description 06/09/2025 10:10 AM CDT Clinical Support [facility] - [facility] - Alpesh [address] [place] [address] NurseAlpesh [facility] Encounter for staple removal (Primary Dx) Discharge Disposition: Discharged to home or Selfcare 06/09/2025 Travel 06/02/2025 2:29 PM CDT - 06/02/2025 4:30 PM CDT Emergency [facility] [address] [place] [address] Zenaida Tierney APRN, CORBY Scalp laceration, initial encounter Discharge Disposition: Discharged to home or Selfcare 06/02/2025 Travel 05/27/2025 12:40 PM CDT - 05/27/2025 3:16 PM CDT Emergency [facility] Emergency [address] [place] [address] Abebe Millre, CHARMAINE Left flank pain Discharge Disposition: Discharged to home or Selfcare 05/27/2025 Travel 05/16/2025 MyChart RX Renewal [facility] [address] [place] [address] Shaun Escobedo, VANESA, CORBY Medication Renewal Reviewed 05/10/2025 Telephone [facility] [address] [place] [id number] Shaun Escobedo APRN, REHANGER Appointment 04/21/2025 9:00 AM CDT Office Visit [facility] [address] [place] [address] Niya Soares APRN, REHANGER Encounter for physical examination (Primary Dx) Discharge Disposition: Discharged to home or Selfcare 04/21/2025 Travel 03/30/2025 8:45 AM CDT Office Visit [facility] [address] [place] [address] Thi Galdamez APRN, CORBY Mass in neck (Primary Dx) Discharge Disposition: Discharged to home or Selfcare 03/30/2025 Travel from Last 3 Months Immunizations Immunization Administration [...] Current Chew Last attempted to quit: 11/25/2021 Alcohol Use Standard Drinks/Week Comments Not Currently 0 (1 standard drink = 0.6 oz pur e alcohol) [facility] Utilities Answer Date Recorded In the past 12 months has [employer], gas, oil, or water company threatened to shut off services in your home? No 02/01/2025 Social Connection and Isolation Panel Answer Date Recorded In a typical week, how many times do you talk on the phone with family, friends, or neighbors? More than three times a week 02/01/2025 How often do you get togethe r with friends or relatives? Once a week 02/01/2025 How often do you attend [facility] or denominational services? Patient declined 02/01/2025 Do you belong to any clubs o r organizations such as druze groups, unions, fraternal or athletic groups, or [...] Total Score - Questions 1-9 0 01/23 [facility] - Occupational Stress [...] place to sleep or slept in a intermediate (including now)? No 12/11/2023 Housing Stability Vital Sign Answer Skinny e Recorded In the last 12 months, was t here a time when you were not able to pay the mortgage or rent on time? No 02/01/2025 In the past 12 months, how m any times have you moved where you were living? 0 02/01/2025 At any time in the past 12 m [facility], were you homeless or living in a intermediate (including now)? No 02/01/2025 Education Answer Date [...] Sign Reading Time Taken Comments Blood Pressure 128/78 06/02/2025 4:29 PM CDT Pulse 70 06/02/2025 4:29 PM CDT Temperature 36.1 C (97 F) 06/02/2025 4:29 PM CDT Respiratory Rate 16 06/02/2025 4:29 PM CDT Oxygen Saturation 100% 06/02/2025 4:29 PM CDT Inhaled Oxygen Concentration - - Weight 63.5 kg (140 lb) 06/02/2025 2:22 PM CDT Height 188 cm (6' 2) 06/02/2025 2:22 PM CDT Body Mass Index 17.97 06/02/2025 2:22 PM CDT Plan of Treatment Health Maintenance Due Date Last Done Comments Human Papillomavirus (HPV) Immunization (1 - Male 3-dose series) 2009 DTaP/Tdap/Td Immunization (8 - Td or Tdap) [...] Procedure Name Priority Date/Time Associated Diagnosis Comments LACERATION REPAIR Routine 06/02/2025 2:[address] RENAL STONE STUDY (ABDOMEN AND PELVIS W/O CONTRAST) Stat with Interpretation 05/27/2025 2:19 PM CDT CBC WITH AUTO DIFFERENTIAL STAT 05/27/2025 1:19 PM CDT CMP (COMPREHENSIVE METABOLIC PANEL) STAT 05/27/2025 1:19 PM CDT COMPLETE BLOOD COUNT (CBC) WITH DIFF STAT 05/27/2025 1:19 PM CDT URINALYSIS REFLEX IF INDICATED BY ABNORMAL RESULTS STAT 05/27/2025 1:19 PM CDT from Last 3 Months Results * Laceration Repair (06/02/2025 2:54 PM CDT) Narrative Elvis Benedict, - 06/02/2025 2:54 PM CDT Elvis Benedict DO 06/02/2025 5:56 PM Laceration Repair Performed by: Zenaida Tierney APRN, CNP Authorized by: Zenaida Tierney APRN, CORBY Consent: Consent obtained: Verbal Consent given by: Patient Risks, benefits, and alternatives were discussed: yes Risks discussed: Infection, need for additional repair, poor cosmetic result, pain and poor wound healing Alternatives discussed: No treatment and delayed treatment Mercer protocol: Procedure explained and questions answered to patient or proxy's satisfaction: yes Patient identity confirmed: Verbally with patient and arm band Anesthesia: Anesthesia method: Topical application Topical anesthetic: LET Laceration details: Location: Scalp Scalp location: Mid-scalp Length (cm): 1 Treatment: Area cleansed with: Manuel Amount of cleaning: Standard Skin repair: Repair method: [place] Number of tigre: 1 Approximation: Approximation: Close Repair type: Repair type: Simple Post-procedure details: Dressing: Open (no dressing) Procedure completion: Tolerated well, no immediate complications Zenaida Tierney RIG MECHANIC, REHANGER PROCEDURE/MINOR SURGI MONE ORDERABLES Final Result * CT RENAL STONE STUDY (ABDOMEN AND PELVIS W/O CONTRAST) (05/27/2025 2:19 PM CDT) Anatomical Region Laterality Modality Abdomen N/A Computed Tomogra phy 05/27/2025 2:25 PM CDT Impressions 05/27/2025 2:28 PM CDT IMPRESSION: 1. Bilateral nephrolithiasis, left greater than right. No obstructing urolithiasis. 2. Mild fullness of the left renal pelvis, with subtle urothelial thickening suggested. Correlate clinically with regards to any urinary tract infection. 3. Diverticulosis. 4. Additional findings as above. Narrative 05/27/2025 2:28 PM CDT EXAM DESCRIPTION: CT RENAL STONE STUDY (ABDOMEN AND PELVIS W/O CONTRAST) REASON FOR STUDY: Left flank pain that began at 0930 today. PMHx kidney stones. Hx appendectomy. TECHNIQUE: CT scan of the abdomen and pelvis performed without intravenous and without oral contrast using helical scanning technique. Reconstructed coronal and sagittal MPR images reviewed. All images stored on PACS. Automated exposure control was used as a dose optimization technique for this examination. COMPARISON: 03/21/2025, 10/04/2024, 07/13/2024. FINDINGS: The sensitivity for detection of visceral lesions is diminished without the use of intravenous contrast. LOWER CHEST: Minimal atelectasis in the lung bases. No consolidation. No pleural or pericardial effusion. LIVER: Normal size. No appreciable mass. GALLBLADDER: No stones identified. No wall thickening or inflammatory changes. BILE DUCTS: No intrahepatic or extrahepatic ductal dilatation. SPLEEN: Normal size. No focal lesions. PANCREAS: No identified cystic or solid masses. No significant calcifications. No adjacent inflammation or peripancreatic fluid collections. Pancreatic duct not dilated. ADRENALS: Normal. KIDNEYS/URINARY TRACT: There are multiple non-obstructing left renal calculi present. Overall distribution of calcifications is similar to the previous examination. There is subtle fullness of the left renal pelvis compared to the most recent prior study, appearing similar to the study on 10/04/2024. A component of urothelial thickening is suggested at the renal pelvis. The ureter is nondilated. There is no appreciable ureteral stone. There are scattered right renal calculi, less numerous than those demonstrated on the left. There is no right-sided hydronephrosis or hydroureter. The urinary bladder is unremarkable in appearance. There are scattered pelvic phleboliths which are stable compared to the previous examination. GI: The stomach is decompressed. Small bowel loops are within normal limits in caliber. There is no obstruction. The appendix has been reported as surgically absent. There is diverticulosis, without diverticulitis. PERITONEUM: There is no free intraperitoneal air. There is no free fluid. No mesenteric lymphadenopathy. RETROPERITONEUM: No retroperitoneal mass or adenopathy. Scattered subcentimeter short axis dimension nodes are similar to the previous examination. REPRODUCTIVE: No significant abnormality. VASCULATURE: Aorta is normal in caliber. MUSCULOSKELETAL: There is no acute osseous abnormality. Tiny sclerotic foci within the pelvis and proximal femurs presumably represent bone islands, stable. OTHER: No other abnormality. THIS IS AN ELECTRONICALLY VERIFIED FINAL REPORT 05/27/2025 2:25 PM - Electronically signed by Laine Gaines M.D. TW: TW Report ID: [id number] Reading Location: [place] [address] Procedure Note Laine Gaines MD - 05/27/2025 EXAM DESCRIPTION: CT RENAL STONE STUDY (ABDOMEN AND PELVIS W/O CONTRAST) REASON FOR STUDY: Left flank pain that began at 0930 today. PMHx kidney stones. Hx appendectomy. TECHNIQUE: CT scan of the abdomen and pelvis performed without intravenous and without oral contrast using helical scanning technique. Reconstructed coronal and sagittal MPR images reviewed. All images stored on PACS. Automated exposure control was used as a dose optimization technique for this examination. COMPARISON: 03/21/2025, 10/04/2024, 07/13/2024. FINDINGS: The sensitivity for detection of visceral lesions is diminished without the use of intravenous contrast. LOWER CHEST: Minimal atelectasis in the lung bases. No consolidation. No pleural or pericardial effusion. LIVER: Normal size. No appreciable mass. GALLBLADDER: No stones identified. No wall thickening or inflammatory changes. BILE DUCTS: No intrahepatic or extrahepatic ductal dilatation. SPLEEN: Normal size. No focal lesions. PANCREAS: No identified cystic or solid masses. No significant calcifications. No adjacent inflammation or peripancreatic fluid collections. Pancreatic duct not dilated. ADRENALS: Normal. KIDNEYS/URINARY TRACT: There are multiple non-obstructing left renal calculi present. Overall distribution of calcifications is similar to the previous examination. There is subtle fullness of the left renal pelvis compared to the most recent prior study, appearing similar to the study on 10/04/2024. A component of urothelial thickening is suggested at the renal pelvis. The ureter is nondilated. There is no appreciable ureteral stone. There are scattered right renal calculi, less numerous than those demonstrated on the left. There is no right-sided hydronephrosis or hydroureter. The urinary bladder is unremarkable in appearance. There are scattered pelvic phleboliths which are stable compared to the previous examination. GI: The stomach is decompressed. Small bowel loops are within normal limits in caliber. There is no obstruction. The appendix has been reported as surgically absent. There is diverticulosis, without diverticulitis. PERITONEUM: There is no free intraperitoneal air. There is no free fluid. No mesenteric lymphadenopathy. RETROPERITONEUM: No retroperitoneal mass or adenopathy. Scattered subcentimeter short axis dimension nodes are similar to the previous examination. REPRODUCTIVE: No significant abnormality. VASCULATURE: Aorta is normal in caliber. MUSCULOSKELETAL: There is no acute osseous abnormality. Tiny sclerotic foci within the pelvis and proximal femurs presumably represent bone islands, stable. OTHER: No other abnormality. THIS IS AN ELECTRONICALLY VERIFIED FINAL REPORT 05/27/2025 2:25 PM - Electronically signed by Laine Gaines M.D. TW: ERA Report ID: [id number] Reading Location: [id number] IMPRESSION: 1. Bilateral nephrolithiasis, left greater than right. No obstructing urolithiasis. 2. Mild fullness of the left renal pelvis, with subtle urothelial thickening suggested. Correlate clinically with regards to any urinary tract infection. 3. Diverticulosis. 4. Additional findings as above. us Abebe Harsh Angela PAC IMG CT ORDERABLES Fi nal Result * (ABNORMAL) URINALYSIS REFLEX IF INDICATED BY ABNORMAL RESULTS (05/27/2025 1:19 PM CDT) [facility] SPECIFIC GRAVITY 1.010 1.003 - 1.030 05/27/2025 1:55 PM CDT [facility] URINE PH 6.0 5.0 - 9.0 05/27/2025 1:55 PM CDT [facility] WBC ESTERASE Negative Negative 05/27/2025 1:55 PM CDT [facility] NITRITE Negative Negative 05/27/2025 1:55 PM CDT [facility] PROTEIN, RANDOM URINE 15 mg/dL(A) Negative 05/27/2025 1:55 PM CDT [facility] URINE GLUCOSE, QUAL Negative Negative 05/27/2025 1:55 PM CDT [facility] URINE KETONES Negative Negative 05/27/2025 1:55 PM CDT [facility] UROBILINOGEN Normal Normal mg/dL 05/27/2025 1:55 PM CDT [facility] URINE BLOOD Negative Negative malcom/ul 05/27/2025 1:55 PM CDT [facility] URINALYSIS COLOR Yellow 05/27/20 1:55 PM CDT [facility] URINALYSIS CLARITY Clear 05/27/2025 1:55 PM CDT [facility] Urine URINE SPECIMEN / Unknown Non-Phlebotomy Collection / Unknown 05/27/2025 1:19 PM CDT 05/27/2025 1:30 PM CDT Jose Alberto Burroughs MD URINE ORDERABLES Final Res ult [facility] [address] [place] [address] * (ABNORMAL) CBC with Auto Differential (05/27/2025 1:19 PM CDT) [facility] WBC 8.11 4.00 - 12.00 10(3)/mcL 05/27/2025 1:42 PM CDT [facility] RBC 5.10 4.40 - 5.80 10(6)/mcL 05/27/2025 1:42 PM CDT [facility] HEMOGLOBIN (HGB) 14.2 13.0 - 16.5 g/dL 05/27/2025 1:42 PM CDT [facility] HEMATOCRIT (HCT) 43.2 38.0 - 50.0 % 05/27/2025 1:42 PM CDT [facility] MCV 84.7 82.0 - 96.0 fL 05/27/2025 1:42 PM CDT [facility] MCH 27.8 26.0 - 32.0 pg 05/27/2025 1:42 PM CDT [facility] MCHC 32.9 31.0 - 36.0 g/dL 05/27/2025 1:42 PM CDT [facility] PLATELET COUNT 288 140 - 440 10(3)/[facility] 05/27/2025 1:42 PM CDT [facility] RDW 13.4 11.8 - 15.5 % 05/27/2025 1:42 PM CDT [facility] MPV 10.9 8.0 - 12.6 fL 05/27/2025 1:42 PM CDT [facility] NEUTROPHILS 75.8(H) 40.0 - 68.0 % 05/27/2025 1:42 PM CDT [facility] LYMPHOCYTES 14.3(L) 19.0 - 49.0 % 05/27/2025 1:42 PM CDT [facility] MONOCYTES 6.3 3.0 - 13.0 % 05/27/2025 1:42 PM CDT [facility] EOSINOPHILS 3.1 0.0 - 8.0 % 05/27/2025 1:42 PM CDT [facility] BASOPHILS 0.5 0.0 - 1.0 % 05/27/2025 1:42 PM CDT [facility] ABSOLUTE NEUTROPHILS 6.15(H) 1.40 - 5.30 10(3)/[facility] 05/27/2025 1:42 PM CDT [facility] ABSOLUTE LYMPHOCYTES 1.16 0.90 - 3.30 10(3)/[facility] 05/27/2025 1:42 PM CDT [facility] ABSOLUTE MONOCYTES 0.51 0.10 - 0.90 10(3)/[facility] 05/27/2025 1:42 PM CDT [facility] ABSOLUTE EOSINOPHIL 0.25 0.00 - 0.50 10(3)/[facility] 05/27/2025 1:42 PM CDT [facility] ABSOLUTE BASOPHILS 0.04 0.00 - 0.10 10(3)/[facility] 05/27/2025 1:42 PM CDT [facility] Blood Venipuncture / Unknown 05/27/2025 1:19 PM CDT 05/27/2025 1:30 PM CDT us Jose Alberto Burroughs MD HEMATOLOGY ORDERABLES Malka l Result [facility] [address] [place] [address] * (ABNORMAL) CMP (Comprehensive Metabolic Panel) (05/27/2025 1:19 PM CDT) SODIUM 140 136 - 145 mmol/L 05/27/2025 1:58 PM CDT [facility] POTASSIUM 3.7 3.5 - 5.1 mmol/L 05/27/2025 1:58 PM CDT [facility] CHLORIDE 106 98 - 107 mmol/L 05/27/2025 1:58 PM CDT [facility] CO2, VENOUS 27 22 - 30 mmol/L 05/27/2025 1:58 PM CDT [facility] ANION GAP 10.7 <18.0 mmol/L 05/27/2025 1:58 PM CDT [facility] GLUCOSE 98 70 - 99 mg/dL 05/27/2025 1:58 PM T [facility] BUN 11 9 - 21 mg/dL 05/27/2025 1:58 PM [facility] CREATININE, BLOOD 0.98 0.70 - 1.30 mg/dL 05/27/2025 1:58 PM T [facility] BUN/CREATININE RATIO 11(L) 12 - 20 ratio 05/27/2025 1:58 PM CDT [facility] TOTAL PROTEIN 7.5 6.0 - 8.0 g/dL 05/27/2025 1:58 PM T [facility] ALBUMIN 4.7 3.5 - 5.0 g/dL 05/27/2025 1:58 PM T [facility] A/G RATIO 1.7 1.0 - 2.2 05/27/2025 1:58 PM T [facility] CALCIUM 9.2 8.7 - 10.5 mg/dL 05/27/2025 1:58 PM [facility] T BILI 0.9 0.2 - 1.2 mg/dL 05/27/2025 1:58 PM [facility] SGOT (AST) 23 <43 U/L 05/27/2025 1:58 PM [facility] SGPT (ALT) 14 <56 U/L 05/27/2025 1:58 PM [facility] ALKALINE PHOSPHATASE 69 40 - 150 U/L 05/27/2025 1:58 PM [facility] GFR, ESTIMATED >60 >=60 05/27/2025 1:58 PM [facility] Comment: Creatinine Clearance is the preferred criteria for selecting drug dose adjustments in renally impaired patients. The GFR is provided as additional pertinent clinical information. GFR is reported in mL/min/1.73 sq m. Calculation based on the Chronic Kidney Disease Epidemiology Collaboration (CKD- EPI) equation refit without adjustment for race. GFR, EST. >60 >=60 025 1:58 PM CDT [facility] GFR, EST. NONAFRICAN >60 >=60 05/27/2025 1:58 PM CDT [facility] Blood Venipuncture / Unknown 05/27/2025 1:19 PM CDT 05/27/2025 1:30 PM CDT us Jose Alberto Burroughs MD CHEMISTRY ORDERABLES Final Result [facility] [place] [address] from Last 3 Months Insurance [facility] Care Teams Radar Repairer Relationship Specialty Start Date End Date Shaun Escobedo APRN, REHANGER #2 [facility] [address] [place] [address] PCP - General Advanced Practice Nurse 05/20/24 Elmo Queen MD #2 [facility] [address] [place] [id number] Consulting Physician Urology 10/30/24
--- OUTSIDE RECORDS SUMMARY | 2025-06-24 19:43 | XMS_ITS | Clinical Summary ---
Author Organization [facility] Address [address] [address] Care Team Providers Care Bank President Name Role Phone Unavailable Primary Care Provider Unavailabl e Source Comments [facility],non-owned Affiliates and Associated Physician Practices is amultiple site organization consisting of ambulatory clinics and hospital sitesin [place], [place], [place] and [place]. This disclosure is being madepursuant to the Care Everywhere program and may not contain all information available regarding this patient. 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 Gender Identity Not on file Sexual Orientation [...] 10:01 AM CDT Height 188 cm (6' 2) 05/25/2017 10:01 AM CDT Body Mass Index 19.26 05/25/2017 10:01 AM CDT Plan of Treatment Health Maintenance Due Date Last Done Comments HIV SCREENING 2009 HEPATITIS C SCREENING 03/21/2012 DTAP/TDAP/TD VACCINES (1 - Tdap) 2013 HEPATITIS B VACCINE (1 of 3 - 19+ 3-dose series) 2013 HPV VACCINE (1 - 3-dose SCDM series) 2021 COVID-19 VACCINE (1 - 2023-2 5 season) 2024 DEPRESSION SCREENING 11/25/2024 INFLUENZA VACCINE (#1) 2025 ZOSTER VACCINE (1 of 2) 2044 [...] patient's age to complete this topic Insurance CIG MEDICAID - OUT OF STATE [facility] [address] [address] CARE ANTHEM Member Subscriber Plan / Payer (Ef fective for All Dates) Name:Samy Schulz A Relation to Subscriber:Self Name:SCHULZSAMY Payer ID:[id number] (NAIC) Type:PPO Address: [address] [facility] CARE ANTHEM Member Subscriber Plan / Payer (Ef fective for All Dates) Name:Samy Schulz A Relation to Subscriber:Self Name:GREGGGORDOEDNA Payer ID:[id number] (NA) Type:PPO Address: [address] CARE ANTHEM ANTHEM
--- OUTSIDE RECORDS SUMMARY | 2025-06-24 19:43 | XMS_ITS | Clinical Summary ---
Author Organization [facility] Address [facility] [place] [address] Care Team Providers Care Purchasing Buyer Name Role Phone Shaun Escobedo NP Primary [...] 12:42 PM CDT Height 188 cm (6' 2) 07/17/2024 12:42 PM CDT Body Mass Index 18.17 07/17/2024 12:42 PM CDT Plan of Treatment Health Maintenance Due Date Last Done Comments Annual Physical 1997 Hepatitis C 2012 HPV Vaccines (1 - 3-dose SCDM series) 2021 COVID-19 Vaccine (2023- season) 2024 DTaP, Tdap and Td Vaccines (8 - Td or Tdap) 11/23/2028 11/23/2018, 07/07/2009, 07/19/1999, Additional history exists Hepatitis B Vaccines Completed 1994, 1994, 1994 Meningococcal B Vaccine Aged Out No l [...] age to complete this topic Care Teams Purchasing Buyer Relationship Specialty Start Date End Date Shaun Escobedo NP [address] [address] PCP - General FAMILY PRACTICE 07/17/24
--- NOTE | 2025-06-24 19:47 | PC.NURSE ---
DR ESPINAL AT THE BEDSIDE
--- NOTE | 2025-06-24 19:52 | ED.LOWEXIN ---
HPI - Extremity Injury (Lower) General Chief Complaint: Extremity Injury, Lower Stated Complaint: RIGHT LOWER LEG NUMBNESS Time Seen by Provider: 06/24/25 19:51 Source: patient Mode of arrival: ambulatory History of Present Illness HPI Narrative: patient presents with numbness and fullness of the right lower leg from the knee down to the ankle started yesterday, intermittent, has been steady today. Patient is telling me that he have history of pain at the right knee medially on May 06 After stepping on a wood board without any fall. negative x-ray, MRI on May 13 positive for fracture At that area, patient is telling me that his started physical therapy May 28, twice a week, workman's comp. Related Data Home Medications ?Medication ?Instructions ?Recorded ?Confirmed ?Last Taken ?Type diazepam 5 mg tablet 5 mg PO DAILY 01/02/23 09/09/24 Unknown History Allergies Allergy/AdvReac Type Severity Reaction Status Date / Time No Known Allergies Allergy Verified 06/24/25 19:43 Review of Systems Review of Systems: All systems reviewed & are unremarkable except as noted in HPI and below PMFSH Past Medical History Medical History Hemorrhoids Nephrolithiasis Anxiety Kidney stones Surgical History Surgical History History of appendectomy Family History Family History Other Diabetes mellitus Family history of cardiovascular disease Family history of elevated blood lipids Social History Social History Smoking status: Never smoker Smokeless tobacco user: chewing tobacco Alcohol intake: current Do You Feel Safe in your Home?: Yes Lack of Transportation: No Lack of Food: Never True Current Housing: I Have Housing Concerned About Future Housing: No Difficulty Paying Gas/Electric Bills: No Difficulty Paying for Meds: YES Currently Unemployed: YES Education: High School Diploma/GED Difficulty w/ Childcare or Family Care: No Exam Narrative: General appearance: Well-developed, well-nourished Skin: Normal color Chest and respiratory: Airway patent, no respiratory distress, no accessory muscle use Heart: Regular rate/rhythm Vascular: Normal peripheral pulses, normal capillary refill. Musculoskeletal: Normal range of motion, no localized tenderness, right lower leg slightly swollen compared to the left one , no calf tenderness, no bruises, no rash, no deformity Neurologic: Alert and oriented ?3, MEDIA CONSULTANT is normal as tested, no gross motor deficit Course Vital Signs Vital signs: Vital Signs Temperature 36.6 C 06/24/25 19:41 Pulse Rate 77 06/24/25 19:41 Respiratory Rate 18 06/24/25 19:41 Blood Pressure 143/99 H 06/24/25 19:41 Pulse Oximetry 100 06/24/25 19:41 Oxygen Delivery Room Air 06/24/25 19:41 Temperature 36.6 C 06/24/25 19:41 Pulse Rate 77 06/24/25 19:41 Respiratory Rate 18 06/24/25 19:41 Blood Pressure 143/99 H 06/24/25 19:41 Pulse Oximetry 100 06/24/25 19:41 Oxygen Delivery Room Air 06/24/25 19:41 MDM - Extremity Injury (Lower) MDM Narrative Medical decision making narrative: differential diagnosis include musculoskeletal pain of the right lower extremity secondary to fracture versus recent physical therapy and or deep vein thrombosis. Lab workup today showed negative D-dimer. X-ray of the right knee showed no acute abnormality Diagnosis leg pain Follow-up with physical therapy and his family physician for further evaluation Differential Diagnosis Differential diagnosis: Likely other ( as above) Lab Data Labs: Lab Results 06/24/25 Range/Units 20:01 PT 11.9 (9.50-12.1) Seconds INR 1.1 APTT 28.3 (23.9-30.70) Sec D-Dimer 0.19 (0.19-0.50) mg/L Imaging Data My impression: x-ray of the right knee showed no acute abnormality Critical Care Time Critical Care Time Critical Care Time: No Discharge Plan Discharge Clinical Impression: Leg pain Patient Disposition: Home Condition: Stable Instructions: Leg Pain (ED) Additional Instructions: Return if symptoms are worsening , call your family physician for appointment, take Tylenol, ibuprofen as as needed for aches and pain, continue home medications. Patient Language: South African Prescriptions: No Action diazepam 5 mg tablet 5 mg PO DAILY Follow-up/Referrals: UNKNOWN,DOCTOR [Primary Care Provider] -
--- NOTE | 2025-06-24 20:09 | PC.NURSE ---
LAB AND XRAY COMPLETED. PATIENT IS AWARE THAT IT WILL TAKE APPROX 1-1.5 HOURS FOR RESULTS. VERBALIZED UNDERSTANDING. CALL LIGHT IN REACH
[2025-06-24 20:21] LABS: INR 1.1; Partial Thromboplastin Time 28.3 Sec (23.9-30.70); Prothrombin Time 11.9 Seconds (9.50-12.1)
--- OUTSIDE RECORDS SUMMARY | 2025-06-24 20:26 | XMS_ITS | Clinical Summary ---
Author Organization [facility] Address [address], [address] [place] [address] Phone Care Team Providers Care Online Media Director Name Role Phone Shaun Escobedo APRN, TEST DESIGNER Primary Care Pr ovider Elmo Queen MD [...] Description 06/09/2025 10:10 AM CDT Clinical Support [facility] - [facility] - Alpesh [address] [place] [address] NurseAlpesh [facility] Encounter for staple removal (Primary Dx) Discharge Disposition: Discharged to home or Selfcare 06/09/2025 Travel 06/02/2025 2:29 PM CDT - 06/02/2025 4:30 PM CDT [facility] [address] [place] [address] Zenaida Tierney APRN, CORBY Scalp laceration, initial encounter Discharge Disposition: Discharged to home or Selfcare 06/02/2025 Travel 05/27/2025 12:40 PM CDT - 05/27/2025 3:16 PM CDT [facility] [address] [place] [address] Abebe Miller, CHARMAINE Left flank pain Discharge Disposition: Discharged to home or Selfcare 05/27/2025 Travel 05/16/2025 MyChart RX Renewal [facility] [address] [place] [address] Shaun Escobedo, VANESA, CORBY Medication Renewal Reviewed 05/10/2025 Telephone [facility] [address] [place] [phone] Shaun Escobedo APRN, TEST DESIGNER Appointment 04/21/2025 9:00 AM CDT Office Visit [facility] [address] [place] [address] Niya Soares APRN, TEST DESIGNER Encounter for physical examination (Primary Dx) Discharge Disposition: Discharged to home or Selfcare 04/21/2025 Travel 03/30/2025 8:45 AM CDT Office Visit [facility] [address] [place] [address] Thi Galdamez APRN, CORBY Mass in neck [...] drink = 0.6 oz pur e alcohol) [facility] Utilities Answer Date Recorded In the past 12 months has Hum electric, gas, oil, or water company threatened [...] week 02/01/2025 How often do you attend [facility] or jainism services? Patient declined 02/01/2025 Do you belong to any clubs o r organizations such as gnosticist groups, unions, fraternal or athletic groups, or [...] Total Score - Questions 1-9 0 01/23 [facility] - [...] any time in the past 12 m [facility], were you homeless or living in a [...] Alternatives discussed: No treatment and delayed treatment [place] protocol: Procedure explained and questions answered to patient or proxy's satisfaction: yes Patient identity confirmed: Verbally with patient and arm band Anesthesia: Anesthesia method: Topical application Topical anesthetic: LET Laceration details: Location: Scalp Scalp location: Mid-scalp Length (cm): 1 Treatment: Area cleansed with: Manuel Amount of cleaning: Standard Skin repair: Repair method: [place] Number of tigre: 1 Approximation: Approximation: Close Repair type: Repair type: Simple Post-procedure details: Dressing: Open (no dressing) Procedure completion: Tolerated well, no immediate complications Zenaida Tierney SLAGGER, TEST DESIGNER PROCEDURE/MINOR SURGI MONE ORDERABLES Final Result * [...] Laine Gaines M.D. TW: TW Report ID: [id number] Reading Location: [place] [address] Procedure Note Laine Gaines MD - 05/27/2025 [...] Laine Gaines M.D. TW: ERA Report ID: [id number] Reading Location: [id number] IMPRESSION: 1. Bilateral nephrolithiasis, left greater than [...] BY ABNORMAL RESULTS (05/27/2025 1:19 PM CDT) [facility] SPECIFIC GRAVITY 1.010 1.003 - 1.030 05/27/2025 1:55 PM CDT [facility] URINE PH 6.0 5.0 - 9.0 05/27/2025 1:55 PM CDT [facility] WBC ESTERASE Negative Negative 05/27/2025 1:55 PM CDT [facility] NITRITE Negative Negative 05/27/2025 1:55 PM CDT [facility] PROTEIN, RANDOM URINE 15 mg/dL(A) Negative 05/27/2025 1:55 PM CDT [facility] URINE GLUCOSE, QUAL Negative Negative 05/27/2025 1:55 PM CDT [facility] URINE KETONES Negative Negative 05/27/2025 1:55 PM CDT [facility] UROBILINOGEN Normal Normal mg/dL 05/27/2025 1:55 PM CDT [facility] URINE BLOOD Negative Negative malcom/ul 05/27/2025 1:55 PM CDT [facility] URINALYSIS COLOR Yellow 05/27/20 1:55 PM CDT [facility] URINALYSIS CLARITY Clear 05/27/2025 1:55 PM CDT [facility] Urine URINE SPECIMEN / Unknown Non-Phlebotomy Collection / Unknown 05/27/2025 1:19 PM CDT 05/27/2025 1:30 PM CDT Jose Alberto Burroughs MD URINE ORDERABLES Final Res ult [facility] [address] [place] [address] * (ABNORMAL) CBC with Auto Differential (05/27/2025 1:19 PM CDT) [facility] WBC 8.11 4.00 - 12.00 10(3)/mcL 05/27/2025 1:42 PM CDT [facility] RBC 5.10 4.40 - 5.80 10(6)/mcL 05/27/2025 1:42 PM CDT [facility] HEMOGLOBIN (HGB) 14.2 13.0 - 16.5 g/dL 05/27/2025 1:42 PM CDT [facility] HEMATOCRIT (HCT) 43.2 38.0 - 50.0 % 05/27/2025 1:42 PM CDT [facility] MCV 84.7 82.0 - 96.0 fL 05/27/2025 1:42 PM CDT [facility] MCH 27.8 26.0 - 32.0 pg 05/27/2025 1:42 PM CDT [facility] MCHC 32.9 31.0 - 36.0 g/dL 05/27/2025 1:42 PM CDT [facility] PLATELET COUNT 288 140 - 440 10(3)/[facility] 05/27/2025 1:42 PM CDT [facility] RDW 13.4 11.8 - 15.5 % 05/27/2025 1:42 PM CDT [facility] MPV 10.9 8.0 - 12.6 fL 05/27/2025 1:42 PM CDT [facility] NEUTROPHILS 75.8(H) 40.0 - 68.0 % 05/27/2025 1:42 PM CDT [facility] LYMPHOCYTES 14.3(L) 19.0 - 49.0 % 05/27/2025 1:42 PM CDT [facility] MONOCYTES 6.3 3.0 - 13.0 % 05/27/2025 1:42 PM CDT [facility] EOSINOPHILS 3.1 0.0 - 8.0 % 05/27/2025 1:42 PM CDT [facility] BASOPHILS 0.5 0.0 - 1.0 % 05/27/2025 1:42 PM CDT [facility] ABSOLUTE NEUTROPHILS 6.15(H) 1.40 - 5.30 10(3)/[facility] 05/27/2025 1:42 PM CDT [facility] ABSOLUTE LYMPHOCYTES 1.16 0.90 - 3.30 10(3)/[facility] 05/27/2025 1:42 PM CDT [facility] ABSOLUTE MONOCYTES 0.51 0.10 - 0.90 10(3)/[facility] 05/27/2025 1:42 PM CDT [facility] ABSOLUTE EOSINOPHIL 0.25 0.00 - 0.50 10(3)/[facility] 05/27/2025 1:42 PM CDT [facility] ABSOLUTE BASOPHILS 0.04 0.00 - 0.10 10(3)/[facility] 05/27/2025 1:42 PM CDT [facility] Blood Venipuncture / Unknown 05/27/2025 1:19 PM CDT 05/27/2025 1:30 PM CDT us Jose Alberto Burroughs MD HEMATOLOGY ORDERABLES Malka l Result [facility] [address] [place] [address] * (ABNORMAL) CMP (Comprehensive Metabolic Panel) (05/27/2025 1:19 PM CDT) SODIUM 140 136 - 145 mmol/L 05/27/2025 1:58 PM CDT [facility] POTASSIUM 3.7 3.5 - 5.1 mmol/L 05/27/2025 1:58 PM CDT [facility] CHLORIDE 106 98 - 107 mmol/L 05/27/2025 1:58 PM CDT [facility] CO2, VENOUS 27 22 - 30 mmol/L 05/27/2025 1:58 PM CDT [facility] ANION GAP 10.7 <18.0 mmol/L 05/27/2025 1:58 PM CDT [facility] GLUCOSE 98 70 - 99 mg/dL 05/27/2025 1:58 PM T [facility] BUN 11 9 - 21 mg/dL 05/27/2025 1:58 PM [facility] CREATININE, BLOOD 0.98 0.70 - 1.30 mg/dL 05/27/2025 1:58 PM T [facility] BUN/CREATININE RATIO 11(L) 12 - 20 ratio 05/27/2025 1:58 PM CDT [facility] TOTAL PROTEIN 7.5 6.0 - 8.0 g/dL 05/27/2025 1:58 PM T [facility] ALBUMIN 4.7 3.5 - 5.0 g/dL 05/27/2025 1:58 PM T [facility] A/G RATIO 1.7 1.0 - 2.2 05/27/2025 1:58 PM T [facility] CALCIUM 9.2 8.7 - 10.5 mg/dL 05/27/2025 1:58 PM [facility] T BILI 0.9 0.2 - 1.2 mg/dL 05/27/2025 1:58 PM [facility] SGOT (AST) 23 <43 U/L 05/27/2025 1:58 PM [facility] SGPT (ALT) 14 <56 U/L 05/27/2025 1:58 PM [facility] ALKALINE PHOSPHATASE 69 40 - 150 U/L 05/27/2025 1:58 PM [facility] GFR, ESTIMATED >60 >=60 05/27/2025 1:58 PM [facility] Comment: Creatinine Clearance is the preferred criteria for selecting drug dose adjustments in renally impaired patients. The GFR is provided as additional pertinent clinical information. GFR is reported in mL/min/1.73 sq m. Calculation based on the Chronic Kidney Disease Epidemiology Collaboration (CKD- EPI) equation refit without adjustment for race. GFR, EST. >60 >=60 025 1:58 PM CDT [facility] GFR, EST. NONAFRICAN >60 >=60 05/27/2025 1:58 PM CDT [facility] Blood Venipuncture / Unknown 05/27/2025 1:19 PM CDT 05/27/2025 1:30 PM CDT us Jose Alberto Burroughs MD CHEMISTRY ORDERABLES Final Result [facility] [address] [facility] [place] [address] from Last 3 Months Insurance [facility] Care Teams Online Media Director Relationship Specialty Start Date End Date Shaun Escobedo APRN, TEST DESIGNER [address] [facility] [address] [place] [address] PCP - General Advanced Practice Nurse 05/20/24 Elmo Queen MD [address] [facility] [address] [place] [id number] Consulting Physician Urology 10/30/24
--- OUTSIDE RECORDS SUMMARY | 2025-06-24 20:26 | XMS_ITS | Clinical Summary ---
Author Organization [facility] Address [address] [place] [address] Care Team Providers Care Photographer Aerial Name Role Phone Unavailable Primary Care Provider Unavailabl e Source Comments [facility],non-owned Affiliates and Associated Physician Practices is amultiple site organization consisting of ambulatory clinics and hospital sitesin [place], [place], [place] and [place]. This disclosure is being madepursuant to the Care Everywhere program and may not contain all information available regarding this patient. 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
--- OUTSIDE RECORDS SUMMARY | 2025-06-24 20:26 | XMS_ITS | Clinical Summary ---
Author Organization [facility] Address [facility] [place] [address] Care Team Providers Care Physical Chemistry Teacher Name Role Phone Shaun Escobedo NP Primary [...] age to complete this topic Care Teams Physical Chemistry Teacher Relationship Specialty Start Date End Date Shaun Escobedo NP [address] [address] PCP - General FAMILY PRACTICE 07/17/24
[2025-06-24 20:37] VITALS: BP 132/88; PULSE 78; RESP 18; O2SAT 100
== END 2025-06-24 20:37 | disposition home or self-care (01) ==
PROVIDERS: Emergency Provider Emergency Medicine
DX: M79.661 Pain in right lower leg (principal); R20.0 Anesthesia of skin
CPT/HCPCS: 36415; 73562; 85380; 85610; 85730; 99283

== ENCOUNTER 2025-06-29 11:38 | Emergency (ER) | payer BC, SELFPAY ==
[2025-06-29 11:59] VITALS: BP 133/86; PULSE 77; RESP 19; TEMP 36.6; O2SAT 100
--- NOTE | 2025-06-29 13:01 | ED.SKABFB ---
HPI - Skin/Abscess/Foreign Bdy General Chief complaint: Skin/Abscess/Foreign Body Stated complaint: Fatigue spot on leg Time Seen by Provider: 06/29/25 12:45 Source: patient and RN notes reviewed Mode of arrival: ambulatory Limitations: no limitations History of Present Illness HPI narrative: [age] year old male presents Express Care complaining of rash to his left lower leg for approximately 4 days. Patient said he noticed it 4 days ago after he was mowing grass [place] Patient denies seeing any tick bites or any other insect bites. Patient denies any pain but reports the rash is mildly pruritic but no longer itchy. Patient also reports the last 2 days he has noticed increased fatigue and having body aches. Patient denies any headaches, muscle aches, joint pain, nausea vomiting, abdominal pain, chest pain, difficulty breathing, upper respiratory symptoms, cough symptoms. Related Data Home Medications ?Medication ?Instructions ?Recorded ?Confirmed ?Last Taken ?Type diazepam 5 mg tablet 5 mg PO DAILY 01/02/23 09/09/24 Unknown History Allergies Allergy/AdvReac Type Severity Reaction Status Date / Time No Known Allergies Allergy Verified 06/29/25 12:05 Review of Systems Review of Systems: CONSTITUTIONAL: Denies fever, chills, or sweats. EYES: Denies visual changes, redness, or discharge. ENT: Denies rhinorrhea, congestion, sore throat, or otalgia. CARDIOVASCULAR: Denies chest pain, palpitations, or edema. RESPIRATORY: Denies cough or dyspnea. GASTROINTESTINAL: Denies abdominal pain, nausea, vomiting, or diarrhea. GENITOURINARY: Denies dysuria or hematuria. SKIN: Positive for rash or itching. MUSCULOSKELETAL: Denies back pain, joint pain, or myalgia. NEUROLOGIC: Denies headache, numbness, or weakness. PSYCHIATRIC: Denies anxiety or depression. All other systems reviewed are negative, except as documented in HPI. [facility] Past Medical History Medical History Hemorrhoids Nephrolithiasis Anxiety Kidney stones Surgical History Surgical History History of appendectomy Family History Family History Other Diabetes mellitus Family history of cardiovascular disease Family history of elevated blood lipids Social History Social History Smoking status: Never smoker Smokeless tobacco user: chewing tobacco Alcohol intake: current Do You Feel Safe in your Home?: Yes Lack of Transportation: No Lack of Food: Never True Current Housing: I Have Housing Concerned About Future Housing: No Difficulty Paying Gas/Electric Bills: No Difficulty Paying for Meds: YES Currently Unemployed: YES Education: High School Diploma/GED Difficulty w/ Childcare or Family Care: No Comments At the time of my signature, I reviewed and agree with the nursing past medical, surgical, social, and family history. There is no relevant family history pertinent to the patient complaint. Exam Narrative: GENERAL: This is a well-nourished, well-developed adult, in no apparent distress. They are non ill-appearing, nontoxic appearing. HEAD: normocephalic, atraumatic. EYES: Sclera clear/white. Conjunctiva normal. Vision is grossly intact. Extraocular movements intact EARS: External ears normal, Hearing grossly intact. NOSE: External nose normal THROAT: Mucous membranes moist, NECK: Neck supple, CARDIOVASCULAR: Regular rate and rhythm RESPIRATORY: Respiratory rate normal, respiratory effort nonlabored, no respiratory distress SKIN: Left lower leg: There is a red patchy erythema rash to left lower leg of the anterior barclay with a puncture was. It measures approximately 1.8 mm in diameter. There is a central clearing to the wound. Rashes nontender, no area of fluctuance, no induration, no exudate. NEURO: awake, alert, and oriented to person, place and time. There were no obvious focal neurologic abnormalities. EXTREMITIES: No joint tenderness, effusion, or edema noted. Course Course Emergency Course: Portions of this record may have been created with voice recognition software Level of Care: Express Care Visit Vital Signs Vital signs: Vital Signs Temperature 98 F 06/29/25 11:59 Pulse Rate 77 06/29/25 11:59 Respiratory Rate 19 06/29/25 11:59 Blood Pressure 133/86 06/29/25 11:59 Pulse Oximetry 100 06/29/25 11:59 Oxygen Delivery Room Air 06/29/25 11:59 Temperature 98 F 06/29/25 11:59 Pulse Rate 77 06/29/25 11:59 Respiratory Rate 19 06/29/25 11:59 Blood Pressure 133/86 06/29/25 11:59 Pulse Oximetry 100 06/29/25 11:59 Oxygen Delivery Room Air 06/29/25 11:59 Reviewed MDM - Skin/Abscess/Foreign Bdy MDM Narrative Medical decision making narrative: Appears patient has a puncture wound to left lower leg. He is unsure what puncture to skin. Given patient's vague symptoms and the central clearance of the rash go ahead and cover for any tick-borne illnesses. Treat him with doxycycline. Discussed physical exam findings. Advised supportive measures and signs/symptoms to go to the ER. Pt is appropriate for outpt treatment and f/u. Differential Diagnosis Differential diagnosis: Likely abscess of skin or subcutaneous tissue, cellulitis, insect bites, contact dermatitis and other (Tick bite, lung disease, Cowan spotted fever) Critical Care Time Critical Care Time Critical Care Time: No Discharge Plan Discharge Clinical Impression: Insect bite Patient Disposition: Home Condition: Stable Instructions: Antibiotic Form, Insect Bite or Sting (ED), Tick Bite (ED) Additional Instructions: Take doxycycline as directed. Please wear sunscreen for going to be outside while taking doxycycline. You may take Tylenol or ibuprofen as needed for pain or fevers. Follow the instructions on the bottle. Follow-up PCP in 3-5 days. Developed worsening rash, chest pains, severe headaches, difficulty breathing, nausea, vomiting, abdominal pain, muscle aches, joint pains, body aches, confusion, or any serious concerns please go to the ER immediately. Patient Language: Icelandic Prescriptions: New doxycycline monohydrate 100 mg capsule 100 mg PO BID 10 Days Qty: 20 0RF No Action diazepam 5 mg tablet 5 mg PO DAILY Follow-up/Referrals: PHYSICIAN NOT ON STAFF,NONSTAFF [Primary Care Provider] - Time of Disposition: 12:53
== END 2025-06-29 12:58 | disposition home or self-care (01) ==
DX: S80.862A Insect bite (nonvenomous), left lower leg, initial encounter (principal); W57.XXXA Bitten or stung by nonvenomous insect and other nonvenomous arthropods, initial encounter; F17.220 Nicotine dependence, chewing tobacco, uncomplicated; F41.9 Anxiety disorder, unspecified
CPT/HCPCS: 99213; G0463